=== PATIENT | female | born 1960 | race Caucasian/White ===

== ENCOUNTER 2017-11-10 12:38 | Emergency (ER) | payer BC, SELFPAY | END 2017-11-10 15:04 | disposition home or self-care (01) | PROVIDERS: Emergency Provider Emergency Medicine; Family Provider Internal Medicine Adolescent Medicine; Visit Provider Emergency Medicine | DX: N20.1 Calculus of ureter (principal); K21.9 Gastro-esophageal reflux disease without esophagitis; Z90.49 Acquired absence of other specified parts of digestive tract; Z79.2 Long term (current) use of antibiotics; Z79.899 Other long term (current) drug therapy; Z88.8 Allergy status to other drugs, medicaments and biological substances | CPT/HCPCS: 74176; 80053; 81001; 85025; 87086; 96374; 96375; 99284; J2405 ==

== ENCOUNTER 2018-02-15 12:04 | Emergency (ER) | payer BC, SELFPAY ==
[2018-02-15 12:04] VITALS: BP 120/82; PULSE 82; RESP 18; TEMP 36.7; O2SAT 93; BMI 29.7
--- NOTE | 2018-02-15 12:09 | XR_ITS ---
XR chest 2V HISTORY: ITS.REASON: chest pain ORDERING PHYSICIAN: John Pires MD PATIENT AGE: 57 years COMPARISON: 12/15/2012 FINDINGS: The cardiomediastinal silhouette and pulmonary vascularity are within normal limits. Minimal atelectatic changes are present along the lower aspect of the anterior clear space. Lungs are otherwise clear. There is a loop recorder device present.. No acute bony abnormalities. IMPRESSION: Minimal atelectasis otherwise negative
--- NOTE | 2018-02-15 12:20 | HMH.EDCP ---
ED Disposition Clinical Impression: GERD (gastroesophageal reflux disease), Viral gastroenteritis Disposition: Home, Self-Care Condition on Discharge: Good Instructions: DI for Gastroesophageal Reflux Disease (GERD), DI for Viral Gastroenteritis -- Adult Additional Instructions: Please take the Protonix twice a day for the next 3 days, after which he can resume your previous scheduled dose, once a day. May take Zofran ODT 15-20 minutes prior to meals, start with clear liquids, advance diet as tolerated. Drink plenty of fluids, take Imodium [id number] as needed for diarrhea. If possible please bring a stool sample to outpatient lab for additional testing. Prescriptions: Ondansetron [Zofran 4mg ODT] 4 mg PO QID PRN #20 tab.rapdis PRN Reason: Nausea Referrals: Kane Morgan MD [Primary Care Provider] - Time of Disposition: 14:40 - Critical Care Critical Care Time: No Attestation: On , the high probability of a clinically significant, sudden or life threatening deterioration of the following system(s) required my full and direct attention, intervention and personal management. The time I documented below is in addition to time spent performing reported procedures but includes the following listed in this critical care notation. Medical Decision Making - Medical Records Medical records reviewed: Yes: I reviewed the patient's medical records. - Renzo Inquiry Pt receiving controlled substance: No Vital Signs: 02/15/18 12:04 02/15/18 13:34 02/15/18 14:55 Temperature 98.0 F 98.4 F 98.0 F Temperature Source Oral Oral Oral Pulse Rate 78 Pulse Rate [Right Brachial] 82 64 Respiratory Rate 18 16 18 Blood Pressure 119/63 Blood Pressure [Right Arm] 120/82 119/50 Blood Pressure Mean [Right Arm] 94 73 Blood Pressure Source Automatic Cuff Blood Pressure Source [Right Arm] Automatic Cuff Automatic Cuff Blood Pressure Position Sitting Blood Pressure Position [Right Arm] Sitting Supine 02 Sat by Pulse Oximetry 93 L 100 Oxygen Delivery Method Room Air Room Air Room Air - Lab Data Lab results reviewed: Yes: I reviewed the patient's lab results. Lab Results 02/15/18 12:15: WBC 8.7, RBC 5.03, Hgb 14.2, Hct 42.1, MCV 83.7, MCH 28.1, MCHC 33.6, RDW 13.8, Plt Count 215, MPV 8.5, Neut % (Auto) 76.4, Lymph % (Auto) 14.4, [place] % (Auto) 6.7, Eos % (Auto) 2.4, Baso % (Auto) 0.1, Neut # (Auto) 6.6, Lymph # (Auto) 1.3, [place] # (Auto) 0.6, Eos # (Auto) 0.2, Baso # (Auto) 0.0 02/15/18 12:15: Sodium 138, Potassium 3.2 L, Chloride 103, Carbon Dioxide 26, Anion Gap 12.2, BUN 31 H, Creatinine 0.83, Estimated Creat Clear 104, Estimated GFR 71, Est GFR ( Amer) 86, Glucose 118 H, Calcium 9.0, Total Bilirubin 0.8, AST 27, ALT 40, Alkaline Phosphatase 161 H, Total Creatine Kinase 49, CK-MB (CK-2) 0.5, CK-MB (CK-2) Rel Index 1.0, Troponin I < 0.02, Total Protein 7.7, Albumin 3.3 L, Globulin 4.4 H, Albumin/Globulin Ratio 0.8 L, Amylase 48, Lipase 131 Result diagrams: 02/15/18 12:15 02/15/18 12:15 Orders (Tests/Meds): ED MEDICATIONS Discontinued Medications Generic Name Dose Route Start Last Admin Trade Name Orenq PRN Reason Stop Dose Admin Diphenoxylate HCl/Atropine 5 mg 02/15/18 12:20 02/15/18 12:47 Lomotil 2.5mg Tablet PO 02/15/18 12:21 Not Given ONCE ONE Sodium Chloride 1,000 mls @ 999 mls/hr 02/15/18 12:30 02/15/18 12:47 Sod Chlor 0.9% 1000ml Bag IV 02/15/18 13:30 999 mls/hr .Q1H1M NEERU Administration Ondansetron HCl 4 mg 02/15/18 12:19 02/15/18 12:46 Zofran 4mg/2ml Vial IV 02/15/18 12:20 4 mg ONCE ONE Administration Pantoprazole Sodium 40 mg 02/15/18 12:19 02/15/18 12:46 Protonix 40mg Vial IV 02/15/18 12:20 40 mg ONCE ONE Administration Sodium Chloride 8 ml 02/15/18 12:19 Saline Flush 10ml Syringe IV 02/15/18 12:20 ONCE ONE - Radiology Data #1 Image(s): Chest Image Reviewed: Yes I reviewed the patient's radiology resu
[2018-02-15 12:28] LABS: Basophils % 0.1 % (0.1-2.0); Eosinophils # 0.2 K/mm3 (0.0-0.4); Eosinophils % 2.4 % (0.1-12.0); Hematocrit 42.1 % (37.0-47.0); Hemoglobin 14.2 g/dL (12.2-16.2); Lymphocytes # 1.3 K/mm3 (0.7-4.5); Lymphocytes % 14.4 K/mm3 (10-50); Mean Corpuscular HGB Conc 33.6 g/dL (31.8-35.4); Mean Corpuscular Hemoglobin 28.1 pg (27.0-31.2); Mean Corpuscular Volume 83.7 fl (81-99); Mean Platelet Volume 8.5 fl (7.4-10.4); Monocytes # 0.6 K/mm3 (0.1-1.0); Monocytes % 6.7 % (1.7-9.3); Neutrophils # 6.6 K/mm3 (1.8-7.8); Neutrophils % 76.4 % (37.0-80.0); Platelet Count 215 K/mm3 (142-424); Red Blood Count 5.03 M/mm3 (4.20-5.40); Red Cell Distribution Width 13.8 % (11.5-17.5); White Blood Count 8.7 K/mm3 (4.8-10.8)
[2018-02-15 12:55] LABS: Alanine Aminotransferase 40 U/L (12-78); Albumin Level 3.3 gm/dL (3.4-5.0); Albumin/Globulin Ratio 0.8 (1.1-1.8); Alkaline Phosphatase 161 U/L (46-116); Amylase 48 U/L (25-125); Anion Gap 12.2 mEq/L (5-15); Aspartate Amino Transferase 27 U/L (15-37); Bilirubin,Total 0.8 mg/dL (0.2-1.0); Blood Urea Nitrogen 31 mg/dL (7-18); Carbon Dioxide 26 mmol/L (21.0-32.0); Chloride 103 mmol/L (98-107); Creatine Kinase 49 U/L (26-192); Creatine Kinase MB 0.5 ng/ml (0.0-3.6); Creatinine Clearance Estimated 104 mL/min (0-300); Creatinine,Serum 0.83 mg/dL (0.55-1.02); Estimated Glomerular Filt Rate 71 ml/min (>60); GFR (African American) 86 ML/MIN (>60); Globulin 4.4 gm/dl (1.3-3.2); Glucose 118 mg/dL (74-106); Lipase 131 u/L (73-393); Potassium 3.2 mmoL/L (3.5-5.1); Sodium 138 mmol/L (136-145); Total Protein,Serum 7.7 gm/dL (6.4-8.2); Troponin I < 0.02 ng/ml (0.00-0.06)
[2018-02-15 13:34] VITALS: BP 119/50; PULSE 64; RESP 16; TEMP 36.9; O2SAT 100
[2018-02-15 14:55] VITALS: BP 119/63; PULSE 78; RESP 18; TEMP 36.7; O2SAT 98
== END 2018-02-15 14:56 | disposition home or self-care (01) ==
PROVIDERS: Emergency Provider Emergency Medicine; Family Provider Internal Medicine Adolescent Medicine; PCP Internal Medicine Adolescent Medicine
DX: A08.4 Viral intestinal infection, unspecified (principal); I10 Essential (primary) hypertension; K21.9 Gastro-esophageal reflux disease without esophagitis
CPT/HCPCS: 71046; 80053; 82150; 82550; 82553; 83690; 84484; 85025; 93005; 96365; 96375; 99284; J2405

== ENCOUNTER → 2019-04-16 09:23 | Outpatient (CLI) | payer BC, SELFPAY ==
--- NOTE | 2019-04-16 09:33 | XR_ITS ---
XR chest 2V HISTORY: Patient with bronchitis a few weeks ago. Cough.. ITS.REASON: COUGH, PRE-OP ORDERING PHYSICIAN: Latonia Portillo DPM PATIENT AGE: 59 years Technique: PA and lateral chest. COMPARISON: February 15, 2018. CXR & 12/15/2012 FINDINGS:. No acute findings. No significant change since January 2018. The lungs are well expanded clear with no focal infiltrate. Perhaps some minor chronic changes bilaterally noting subtle coarsening markings. The heart is normal in size with anne and mediastinal structures stable. Satisfactory. Loop recorder again noted. No pleural effusion. No pneumothorax. Chest wall and T-spine stable. Unremarkable. IMPRESSION Stable chest. Lungs clear with no active disease. Nothing definitely acute
[2019-04-16 10:56] LABS: Basophils % 0.4 % (0.1-2.0); Eosinophils # 0.3 K/mm3 (0.0-0.4); Hematocrit 41.5 % (37.0-47.0); Hemoglobin 13.2 g/dL (12.2-16.2); Lymphocytes # 1.3 K/mm3 (0.7-4.5); Lymphocytes % 15.2 % (10-50); Mean Corpuscular HGB Conc 31.8 g/dL (31.8-35.4); Mean Corpuscular Hemoglobin 27.5 pg (27.0-31.2); Mean Corpuscular Volume 86.6 fl (81-99); Mean Platelet Volume 8.1 fl (7.4-10.4); Monocytes # 0.5 K/mm3 (0.1-1.0); Monocytes % 5.6 % (1.7-9.3); Neutrophils # 6.2 K/mm3 (1.8-7.8); Neutrophils % 75.7 % (37.0-80.0); Platelet Count 195 K/mm3 (142-424); Red Blood Count 4.79 M/mm3 (4.20-5.40); Red Cell Distribution Width 14.4 % (11.5-17.5); White Blood Count 8.2 K/mm3 (4.8-10.8)
[2019-04-16 12:46] LABS: Alanine Aminotransferase 33 U/L (12-78); Albumin Level 3.3 gm/dL (3.4-5.0); Albumin/Globulin Ratio 0.9 (1.1-1.8); Alkaline Phosphatase 135 U/L (46-116); Anion Gap 15.2 mEq/L (5-15); Aspartate Amino Transferase 16 U/L (15-37); Bilirubin,Total 0.7 mg/dL (0.2-1.0); Blood Urea Nitrogen 24 mg/dL (7-18); Calcium 8.8 mg/dL (8.5-10.1); Carbon Dioxide 26 mmol/L (21.0-32.0); Chloride 106 mmol/L (98-107); Creatinine,Serum 0.77 mg/dL (0.55-1.02); Estimated Glomerular Filt Rate 77 ml/min (>60); GFR (African American) 93 ML/MIN (>60); Globulin 3.5 gm/dl (1.3-3.2); Glucose 123 mg/dL (74-106); Potassium 3.2 mmoL/L (3.5-5.1); Sodium 144 mmol/L (136-145); Total Protein,Serum 6.8 gm/dL (6.4-8.2)
[2019-04-19 08:50] LABS: Vitamin D 25 Hydroxy 27.6 ng/mL (30.0-100.0)
== END ==
PROVIDERS: PCP Internal Medicine Adolescent Medicine; Visit Provider Podiatrist
DX: Z01.818 Encounter for other preprocedural examination (principal); S82.832A Other fracture of upper and lower end of left fibula, initial encounter for closed fracture; E55.9 Vitamin D deficiency, unspecified
CPT/HCPCS: 36415; 71046; 80053; 82652; 85025; 93005

== ENCOUNTER 2019-04-20 07:51 | Day surgery (SDC) | payer BC, SELFPAY ==
[2019-04-19 10:55] VITALS: BMI 29.7
[2019-04-20] VITALS (16 sets, daily range): BP systolic 122–175; BP diastolic 65–90; PULSE 74–106; RESP 13–25; TEMP 36.6–43; O2SAT 92–98
--- NOTE | 2019-04-20 08:29 | SUR.PREOP ---
0825- pre-op scrub performed by Vianey Carroll RN
--- NOTE | 2019-04-20 08:45 | HMH.ANESCL ---
[facility] Anesthesia Checklist - Patient Identification Patient Identification: Arm Band, Verbal (Name & ) - Structural Data Admitted From: Home Planned Operative Procedure/s: Left ankle ORIF Consent for Planned Operative Procedure(s) Verified: Yes Verified Documents: Surgical Consent, History and Physical - NPO Status Verified Time NPO: 22:30 - Chart Verification Results Verified: CBC, BMP - Additional verifications Patient : No Anesthesia Reactions: No - Airway Assessment C-Spine Mobility Assessed: Yes TMJ Mobility Assessed: Yes Dentition: Good Dentition - Neurological Assessment Level of Consciousness: Awake Hx Seizures: No Numbness or tingling in extremities: No - Anesthesia Plan Anesthesia Risk discussed: Yes Anesthesia Plan: Verified ASA Class: II Anesthesia Type: General (LMA with PNB) [facility] History I have reviewed the patient's past medical history: Yes Medical History: Reports:: Gastroesophageal Reflux Disease(GERD), Kidney Stones Denies:: Cancer, Diabetes Mellitus Type 1, Diabetes Mellitus Type 2, Internal Pacemaker, MRSA, Seizures *Have you ever received a pneumonia vaccine?: No *Have you received a flu vaccine this season?: Yes Other Medical History: Denies: Blood Transfusion Reaction Comment:: obesity Other Surgeries: Yes: Other (wisdom, anal fissure). No: Pacemaker Amputation: No Fractures: No - *Social History Educational Level: Completed College Smoking Status: Never smoker Alcohol Intake: never *Occupational Status:: employed Housing: house Household Members: significant other *Travel in the last 8 weeks: None - Psychiatric History Expresses thoughts of harming self/others: None Suicide Plan Description: No Plan Family Hx:: Cancer
--- NOTE | 2019-04-20 09:22 | HMH.OPNOTE ---
Date of procedure: 04/20/19 Pre-op Diagnosis:: 1. Left displaced ankle (distal fibula) fracture 2. Left delayed fracture non-union Post-op Diagnosis:: Same Procedure performed:: 1. Left resection of fracture non-union 2. Left ORIF ankle (distal fibula) fracture 3. Left application of posterior splint Surgeon:: Latonia Portillo DPM SHEET ROCK HANGER:: Kane Grant Anesthesia: regional (L popliteal block), LMA Estimated blood loss (mL): 15 Clinical Note:: Left Ankle Fracture Indications: X-rays evaluated by myself. 3 views of left ankle taken at [facility] 03/01/19 reviewed and discussed with patient. X-ray reports from Dr. Fish's clinical notes and images reviewed by myself. There has been some additional displacement since the original film with no evidence of callus formation. X-rays reviewed and discussed with the patient. Conservative treatment discussed but not recommended at this time. Patient wants the fastest return to activity . I explained that at this point there is no callus formation and there has been some displacement of the fracture since the initial x-ray. I explained that we could re-cast and keep nonweightbearing for another 6 weeks but the fracture may or may not heal. We discussed use of a bone stimulator. I explained insurance typically will not cover without 90 days of radiographic non healing reports. DOI: 03/01/19. We discussed surgery. I explained that surgery would be the definitive treatment to address the fracture. She is already 6 weeks from the injury and little evidence of healing on x-ray. We discussed risks of delayed nonunions. Patient is relatively healthy. She is not diabetic and does not smoke. She does have a history of low calcium. Recommend we check a vitamin D and get a DEXA bone scan as she has also had 4 fractures in the last 2 years. We discussed the surgery in detail. All risks and benefits were discussed including but not limited to: damage to blood vessels and nerves, bleeding, infection, wound complications, delayed, mal or non-union of bone, post-traumatic arthritis, need for further surgery, need for removal of implant, prolonged swelling of the extremity, prolonged pain, CRPS/RSD, DVT, and anesthetic complications. No guarantees were given. All questions fully answered. The patient verbalized understanding and agreed to proceed with surgery. Consent was obtained. Necessary labs and pre-op testing ordered: CBC, BMP, EKG, CXR, vitamin D. Pt was given a Rx for [place] 7.5/325 #30, Zofran, Motrin, vit D 50,000 units. Discussed DEXA scan and DVT ppx with aspirin. Patient has a fracture boot. She has crutches and knee walker at home. Medical clearance per Dr. Fisher. Operative findings:: Displaced distal left fibula fracture. No callus formation noted. There was a small posterior distal fibula fragment in addition to the main fragment. Operative note:: On this date and time patient was deemed an appropriate surgical candidate. Pre-op regional popliteal nerve block performed by anesthesia. With informed consent signed, the patient was taken to the operating theater. The patient was positioned supine. General anesthesia was induced. Tourniquet was applied to the left mid calf @225mmHg. The left lower extremity was prepped and draped in normal sterile fashion. Left Resection of Fracture Non-union: Attention was directed to the lateral ankle where intra-op fluoroscopy was utilized to steven anatomical landmarks. A linear incision was made over the lateral ankle. Dissection was carried thru skin and subcutaneous tissue with care taken to maintain surgical hemostasis and safely retract neurovascular structures. Dissection was then carried thru deep fascia to bone. The peroneal tendons were visible posteriorly and laterally, and safely retracted during procedure. The fibula was clearly visualized and the fracture was identified. There was no bone callus noted, with a 3mm gap. The wound was flushed with copious amounts of normal sterile saline. A
--- NOTE | 2019-04-20 09:29 | P.OP_ITS ---
Date of procedure: 04/20/19 Pre-op Diagnosis:: 1. Left displaced ankle (distal fibula) fracture 2. Left delayed fracture non-union Post-op Diagnosis:: Same Procedure performed:: 1. Left resection of fracture non-union 2. Left ORIF ankle (distal fibula) fracture 3. Left application of posterior splint Surgeon:: Latonia Portillo DPM PLANTING MACHINE OPERATOR:: Kane Grant Anesthesia: regional (L popliteal block), LMA Estimated blood loss (mL): 15 Clinical Note:: Left Ankle Fracture Indications: X-rays evaluated by myself. 3 views of left ankle taken at [facility] 03/01/19 reviewed and discussed with patient. X-ray reports from Dr. Fish's clinical notes and images reviewed by myself. There has been some additional displacement since the original film with no evidence of callus formation. X-rays reviewed and discussed with the patient. Conservative treatment discussed but not recommended at this time. Patient wants the fastest return to activity . I explained that at this point there is no callus formation and there has been some displacement of the fracture since the initial x-ray. I explained that we could re-cast and keep nonweightbearing for another 6 weeks but the fracture may or may not heal. We discussed use of a bone stimulator. I explained insurance typically will not cover without 90 days of radiographic non healing reports. DOI: 03/01/19. We discussed surgery. I explained that surgery would be the definitive treatment to address the fracture. She is already 6 weeks from the injury and little evidence of healing on x-ray. We discussed risks of delayed nonunions. Patient is relatively healthy. She is not diabetic and does not smoke. She does have a history of low calcium. Recommend we check a vitamin D and get a DEXA bone scan as she has also had 4 fractures in the last 2 years. We discussed the surgery in detail. All risks and benefits were discussed including but not limited to: damage to blood vessels and nerves, bleeding, infection, wound complications, delayed, mal or non-union of bone, post-traumatic arthritis, need for further surgery, need for removal of implant, prolonged swelling of the extremity, prolonged pain, CRPS/RSD, DVT, and anesthetic complications. No guarantees were given. All questions fully answered. The patient verbalized understanding and agreed to proceed with surgery. Consent was obtained. Necessary labs and pre-op testing ordered: CBC, BMP, EKG, CXR, vitamin D. Pt was given a Rx for [place] 7.5/325 #30, Zofran, Motrin, vit D 50,000 units. Discussed DEXA scan and DVT ppx with aspirin. Patient has a fracture boot. She has crutches and knee walker at home. Medical clearance per Dr. Fisher. Operative findings:: Displaced distal left fibula fracture. No callus formation noted. There was a small posterior distal fibula fragment in addition to the main fragment. Operative note:: On this date and time patient was deemed an appropriate surgical candidate. Pre- op regional popliteal nerve block performed by anesthesia. With informed consent signed, the patient was taken to the operating theater. The patient was positioned supine. General anesthesia was induced. Tourniquet was applied to the left mid calf @225mmHg. The left lower extremity was prepped and draped in normal sterile fashion. Left Resection of Fracture Non-union: Attention was directed to the lateral ankle where intra-op fluoroscopy was utilized to steven anatomical landmarks. A linear incision was made over the lateral ankle. Dissection was carried thru skin and subcutaneous tissue with care taken to maintain surgical hemostasis and safely retract neurovascular structures. Dissection was then carried thru deep fascia to bone. The peroneal tendons were visible posteriorly and laterally, and
--- NOTE | 2019-04-20 10:19 | XR_ITS ---
XR ankle LT 2V HISTORY: ITS.REASON: ORIF LEFT FIB ORDERING PHYSICIAN: Latonia Portillo DPM PATIENT AGE: 59 years Comparison: None Fluoroscopy time: 24 seconds FINDINGS: 2 images obtained with the C-arm show a lateral bone plate placed at the distal fibula with good alignment. IMPRESSION: ORIF distal fibular fracture
--- NOTE | 2019-04-20 10:39 | HMH.ANESI ---
[facility] Anesthesia Record Part I Intake, IV Amount: 900 Estimated blood loss (mL): 10 (0) Urine output (mL): 0 Blood Products used (#): none Blood Pressure: 146/77 SaO2: 95 Pulse Rate: 92 Respiratory Rate: 18 Temperature: 97.9 F Patient is:: Awake, Stable Stable to PACU at:: 10:36
--- NOTE | 2019-04-20 10:40 | HMH.ANESII ---
[facility] Anesthesia Record Part II Discharge Time: 11:06 Destination: Surgical Day Care (OP Surgery) PACU nurse assessment reviewed?: Yes Patient Condition:: Good Anesthesia Complications:: None Swallowing reflex intact?: Yes Cyanosis?: No
--- NOTE | 2019-04-20 11:00 | XR_ITS ---
XR ankle LT min 3V HISTORY: ITS.REASON: Post Op ORIF Ankle ORDERING PHYSICIAN: Latonia Portillo DPM PATIENT AGE: 59 years Comparison: 03/01/2019 FINDINGS: Status post ORIF lateral malleolar fracture. Lateral bone plate is present the distal fibula with good bony alignment and no obvious orthopedic complication. Posterior splint is in place. Ankle mortise is preserved IMPRESSION: Good alignment status post ORIF distal fibular fracture
== END 2019-04-20 12:36 | disposition home or self-care (01) ==
PROVIDERS: PCP Internal Medicine Adolescent Medicine; Visit Provider Podiatrist
PROC: (CPT 27726; principal; 2019-04-20 09:15)
DX: S82.892G Other fracture of left lower leg, subsequent encounter for closed fracture with delayed healing (principal); E55.9 Vitamin D deficiency, unspecified; S82.832K Other fracture of upper and lower end of left fibula, subsequent encounter for closed fracture with nonunion; W01.0XXD Fall on same level from slipping, tripping and stumbling without subsequent striking against object, subsequent encounter
CPT/HCPCS: 27726; 73600; 73610; 76000; 96374; C1713; C1762; C1776

== ENCOUNTER → 2019-05-09 13:38 | Outpatient (CLI) | payer BC, SELFPAY ==
--- NOTE | 2019-05-09 13:43 | XR_ITS ---
XR ankle wt bearing LT min 3V HISTORY: Follow-up ORIF ITS.REASON: Post op ORDERING PHYSICIAN: Latonia Portillo DPM PATIENT AGE: 59 years Comparison: 04/20/2019 FINDINGS: Status post ORIF of the fibula with a bone plate along the distal aspect of the fibula stabilizing nondisplaced fracture. There is good alignment of the transverse fracture of the distal fibula. Fracture line is still visible. IMPRESSION: No change status post ORIF distal fibular fracture with good alignment
== END ==
PROVIDERS: PCP Internal Medicine Adolescent Medicine; Visit Provider Podiatrist
DX: S82.892G Other fracture of left lower leg, subsequent encounter for closed fracture with delayed healing (principal); Z98.890 Other specified postprocedural states
CPT/HCPCS: 73610

== ENCOUNTER → 2019-05-31 09:54 | Outpatient (CLI) | payer BC, SELFPAY ==
--- NOTE | 2019-05-31 09:58 | XR_ITS ---
XR ankle wt bearing LT min 3V HISTORY: Follow-up surgery/fracture/pain ITS.REASON: postop views ORDERING PHYSICIAN: Latonia Portillo DPM PATIENT AGE: 59 years Comparison: 05/09/2019 FINDINGS: Bone plate remains in place stabilizing the distal annular fracture with good alignment. Fracture line is still visible. The splint has been removed. There is generalized osteopenia. IMPRESSION: Good alignment distal fibular fracture. Fracture line remains visible
== END ==
PROVIDERS: PCP Internal Medicine Adolescent Medicine; Visit Provider Podiatrist
DX: S82.832A Other fracture of upper and lower end of left fibula, initial encounter for closed fracture (principal)
CPT/HCPCS: 73610

== ENCOUNTER → 2019-06-13 11:12 | Outpatient (CLI) | payer BC, SELFPAY ==
--- NOTE | 2019-06-13 11:15 | XR_ITS ---
XR foot wt bearing LT 3V HISTORY: ITS.REASON: pain/post-op ORDERING PHYSICIAN: Latonia Portillo DPM PATIENT AGE: 59 years COMPARISON: 03/01/2019. FINDINGS: There is now moderate degree of osteopenia compared to the prior study. The degenerative change at the first MTP joint remains stable. Also stable is the plantar calcaneal small spur. There is no acute fracture. The small 5 mm triangular-shaped corticated ossific density adjacent to the medial distal talus remains stable. Impression: Moderate osteopenia. No acute fracture. Other findings described above are stable and chronic.
--- NOTE | 2019-06-13 11:15 | XR_ITS ---
XR ankle wt bearing LT min 3V HISTORY: ITS.REASON: Pain ORDERING PHYSICIAN: Latonia Portillo DPM PATIENT AGE: 59 years Comparison: 70 08/12/2019. FINDINGS: The fibular orthopedic hardware remains stable. There is still a minimal residual lucent fracture line at the distal fibula with corticated margins. This is less prominent compared to the prior study indicating further interval healing. The joint spaces and alignment are normal. The degree of osteopenia is unchanged. Impression: Minimal residual lucent fracture line is still present at the distal fibula however this has improved since the prior study. Persistent stable osteopenia.
== END ==
PROVIDERS: PCP Internal Medicine Adolescent Medicine; Visit Provider Podiatrist
DX: Z98.890 Other specified postprocedural states (principal)
CPT/HCPCS: 73610; 73630

== ENCOUNTER 2021-03-12 16:58 | Observation (INO) | payer BC, SELFPAY ==
[2021-03-12 17:04] VITALS: BP 145/66; PULSE 78; RESP 22; TEMP 36.6; O2SAT 93; BMI 29.6
--- NOTE | 2021-03-12 17:04 | PC.NURSE ---
Pt arrived to the floor at this time.
--- NOTE | 2021-03-12 17:05 | XR_ITS ---
PROCEDURE: XR CHEST 2V CLINICAL HISTORY: Pneumonitis Covid19 pneumonia COMPARISON: CR CXR CHEST(2 VIEWS-NOT PORTABLE) from 12/15/2012 CR CXR2V XR chest 2V from 02/15/2018 FINDINGS: The cardiomediastinal silhouette and pulmonary vascularity are within normal limits. Loop recorder device is present over the left hemithorax. Patchy density is noted in the right upper and left upper lobe consistent with pneumonia. There is also some patchy density in the right lower lobe consistent with pneumonia. The pneumonia has a somewhat ground-glass attenuation. No acute bony abnormalities. IMPRESSION: Bilateral ground-glass opacification consistent with Covid19 pneumonia Dictated by: Shahzad Gillis MD 03/12/2021 17:41 Shahzad Gillis MD in [facility] 03/12/2021 17:41
[2021-03-12 18:00] VITALS: O2SAT 92
[2021-03-12 18:25] LABS: Chloride 108 mmol/L (98-107); Potassium 3.4 mmoL/L (3.5-5.1); Sodium 140 mmol/L (136-145)
[2021-03-12 18:28] LABS: Alanine Aminotransferase 21 U/L (12-78); Albumin Level 3.4 g/dl (3.5-5.0); Albumin/Globulin Ratio 0.9 (1.1-1.8); Alkaline Phosphatase 135 U/L (38-126); Anion Gap 12.4 mEq/L (5-15); Aspartate Amino Transferase 37 U/L (14-36); Bilirubin,Total 0.6 mg/dl (0.2-1.3); Blood Urea Nitrogen 30 mg/dl (7-17); Calcium 8.5 mg/dl (8.4-10.2); Carbon Dioxide 23 mmol/L (22.0-30.0); Creatinine Clearance Estimated 83 mL/min (50-200); Estimated Glomerular Filt Rate 57 ml/min (>60); GFR (African American) 69 ML/MIN (>60); Globulin 3.7 g/dL (1.3-3.2); Glucose 90 mg/dl (74-100); Total Protein,Serum 7.1 g/dl (6.3-8.2)
[2021-03-12 18:30] LABS: Lactic Acid 0.8 mmol/L (0.7-2.1)
[2021-03-12 18:31] LABS: Basophils % 0.4 % (0.1-2.0); Eosinophils % 0.1 % (0.1-12.0); Hemoglobin 13.7 g/dL (12.2-16.2); Lymphocytes # 0.6 K/mm3 (0.7-4.5); Lymphocytes % 8.5 % (10-50); Mean Corpuscular HGB Conc 33.4 g/dL (31.8-35.4); Mean Corpuscular Hemoglobin 28.1 pg (27.0-31.2); Mean Corpuscular Volume 84.2 fl (81-99); Mean Platelet Volume 8.9 fl (7.4-10.4); Monocytes # 0.3 K/mm3 (0.1-1.0); Monocytes % 4.5 % (1.7-9.3); Neutrophils % 86.6 % (37.0-80.0); Platelet Count 159 K/mm3 (142-424); Red Blood Count 4.87 M/mm3 (4.20-5.40)
[2021-03-12 18:33] LABS: MANUAL DIFFERENTIAL MANUAL DIFFERENTIAL (MANUAL DIFF)
[2021-03-12 19:18] LABS: Lymphocytes % 5 % (10-50); Monocytes % 3 % (2-9); Neutrophils % 92 % (42-76); Platelet Estimate Normal; RBC Morphology Normal; Total Cells Counted 100
[2021-03-12 20:00] VITALS: BP 104/63; PULSE 69; RESP 18; TEMP 36.3; O2SAT 91
--- NOTE | 2021-03-12 22:11 | PC.NURSE ---
lab called with positive covid results dr ramirez is aware.
[2021-03-13 00:26] VITALS: BP 99/55; PULSE 61; RESP 18; TEMP 36.4; O2SAT 90
[2021-03-13 04:00] VITALS: BP 106/57; PULSE 59; RESP 18; TEMP 36.4; O2SAT 90
[2021-03-13 05:00] VITALS: BMI 30.5
--- NOTE | 2021-03-13 06:43 | PC.NURSE ---
pt alert and oriented. in airborne/contact/droplet precautions. iv patent and infusing per order. ambulates independently to bathroom. remained on room air since arrival to floor. no pain reported. vss. afebrile. call light in reach. will continue to monitor
[2021-03-13 07:19] VITALS: BP 133/77; PULSE 69; RESP 22; TEMP 36.4; O2SAT 90
--- NOTE | 2021-03-13 07:20 | P.CONPHA_ITS ---
[facility] VTE Monitoring - Patient Demographics Admission date: 03/12/21 Report Date: 03/13/21 Time: 07:20 Allergies/Adverse Reactions: Patient Allergies sumatriptan [From Imitrex] Allergy (Verified 06/20/19 14:13) diphenhydramine [From BENADRYL] Adverse Reaction (Unknown, Verified 06/20/19 14:13) CAN'T SLEEP Height: 1.7 m Weight: 88.195 kg - VTE Risk Labs: VTE Related Lab Results Hgb 13.7 g/dL (12.2-16.2) 03/12/21 18:10 Hct 41.0 % (37.0-47.0) 03/12/21 18:10 Plt Count 159 K/mm3 (142-424) 03/12/21 18:10 BUN 30 mg/dl (7-17) H 03/12/21 18:10 Creatinine 1.00 mg/dl (0.52-1.04) 03/12/21 18:10 Estimated Creat Clear 83 mL/min (50-200) 03/12/21 18:10 Was VTE Risk Assessment Performed: Yes VTE Score: 2 VTE Risk Level: Very Low Risk - Prophylaxis VTE Prophylaxis Ordered?: Yes Types of VTE Prophylaxis: TEDS Knee High, Pharmacological Location of Applied Device: Bilateral Lower Extremeties Pharmacologic Type: Enoxaparin
--- NOTE | 2021-03-13 07:49 | HMH.HP ---
*Admission Date: 03/12/21 *Chief complaint: Cough/fever/congestion *History of present illness: 61-year-old white female who was diagnosed with COVID-19 infection 8 days ago by rapid testing in our office, who became symptomatic 11 days ago, who over the couple of days after her diagnosis became progressively worse, chest tightness and sputum production and was placed on Omnicef and azithromycin as an outpatient. She initially improved but over the past 48 hours has become worse, diminished p.o. intake, coughing, return if fevers, in the office she was found to be tachycardic, relatively hypotensive compared to baseline, crackles in her lung field, O2 saturation 92% on room air, admitted to hospital for further diagnostic testing, supportive care, IV fluids and IV steroids. [facility] History I have reviewed the patient's past medical history: Yes Medical History: Reports:: Gastroesophageal Reflux Disease(GERD), Kidney Stones Denies:: Cancer, Diabetes Mellitus Type 1, Diabetes Mellitus Type 2, Internal Pacemaker, MRSA, Seizures *Have you ever received a pneumonia vaccine?: Yes *Have you received a flu vaccine this season?: Yes Other Medical History: Denies: Blood Transfusion Reaction Other Surgeries: Yes: Cardiac Catheterization, Cholecystectomy, Other (wisdom, anal fissure). No: Pacemaker Amputation: No Fractures: Yes (R Ankle) - *Social History Last grade of school completed: Advanced degree Smoking Status: Never smoker Alcohol Intake: never *Occupational Status:: other Housing: house Household Members: spouse *Travel in the last 8 weeks: None Family Hx:: Cancer Review of Systems - Review of Systems Review of systems:: pertinent systems reviewed and negative unless documented below Meds Home Medications Medication Instructions Recorded Confirmed Type Pantoprazole Sodium [Protonix 40mg 40 mg PO DAILY 02/15/18 03/13/21 History tablet] Albuterol Sulfate [Albuterol 2 puffs IH Q6H PRN 03/13/21 03/13/21 History Sulfate Hfa] Allergies Allergy/AdvReac Type Severity Reaction Status Date / Time sumatriptan [From Imitrex] Allergy Verified 06/20/19 14:13 diphenhydramine AdvReac Unknown CAN'T Verified 06/20/19 14:13 [From BENADRYL] SLEEP Exam Vital signs and Labs for Last 24 Hours: Temp Pulse Resp BP Pulse Ox 97.6 F 69 22 133/77 90 L 03/13/21 07:19 03/13/21 07:19 03/13/21 07:19 03/13/21 07:19 03/13/21 07:19 Laboratory Results - last 24 hr 03/12/21 18:10: WBC 7.0, RBC 4.87, Hgb 13.7, Hct 41.0, MCV 84.2, MCH 28.1, MCHC 33.4, RDW 14.0, Plt Count 159, MPV 8.9, Neut % (Auto) 86.6 H, Lymph % (Auto) 8.5 L, [place] % (Auto) 4.5, Eos % (Auto) 0.1, Baso % (Auto) 0.4, Neut # (Auto) 6.0, Lymph # (Auto) 0.6 L, [place] # (Auto) 0.3, Eos # (Auto) 0.0, Baso # (Auto) 0.0, Total Counted 100, Neutrophils % (Manual) 92 H, Lymphocytes % (Manual) 5 L, Monocytes % (Manual) 3, Platelet Estimate Normal, RBC Morphology Normal 03/12/21 18:10: Sodium 140, Potassium 3.4 L, Chloride 108 H, Carbon Dioxide 23, Anion Gap 12.4, BUN 30 H, Creatinine 1.00, Estimated Creat Clear 83, Estimated GFR 57 L, Est GFR ( Amer) 69, Glucose 90, Calcium 8.5, Total Bilirubin 0.6, AST 37 H, ALT 21, Alkaline Phosphatase 135 H, Total Protein 7.1, Albumin 3.4 L, Globulin 3.7 H, Albumin/Globulin Ratio 0.9 L 03/12/21 18:10: Lactate 0.8 I & O for Last 24 hours: Intake & Output 03/10/21 03/11/21 03/12/21 03/13/21 11:59 11:59 11:59 11:59 Intake Total 2920 / 2920 Balance 2920 / 2920 Weight 194 lb 7 oz Microbiology Reports for the Last 24 Hours: Microbiology 03/12/21 18:10 Nasopharyngeal Coronavirus COVID-19 PCR - Final - *Routine HEENT Exam Head: Present: normocephalic Eye: Present: EOMI, PERRL ENT: Present: mucous membranes moist - *Routine Neck Exam Present: supple. Absent: lymphadenopathy - *Routine Respiratory Exam Present: rales, rhonchi, crackles Comments: Crackles mostly on right middle lung field. S
--- NOTE | 2021-03-13 08:16 | HMH.DCSUM ---
General - General Admission date:: 03/12/21 Discharge date: 03/13/21 HPI HPI: 61-year-old white female who was diagnosed with COVID-19 infection 8 days ago by rapid testing in our office, who became symptomatic 11 days ago, who over the couple of days after her diagnosis became progressively worse, chest tightness and sputum production and was placed on Omnicef and azithromycin as an outpatient. She initially improved but over the past 48 hours has become worse, diminished p.o. intake, coughing, return if fevers, in the office she was found to be tachycardic, relatively hypotensive compared to baseline, crackles in her lung field, O2 saturation 92% on room air, admitted to hospital for further diagnostic testing, supportive care, IV fluids and IV steroids. Hospital Course Hospital Course: Patient was admitted, blood counts were done, no leukocytosis, chemistry panel essentially unrevealing. Chest x-ray showed groundglass opacities consistent with a viral pneumonia but no evidence of bacterial lobar pneumonia appearances on chest x-ray. Patient continued to have a dry cough, nonproductive. She did not require oxygen overnight. This morning after IV fluid she felt much better, eating well. Less cough. Wished to go home. Plan to be discharged home on Levaquin, dexamethasone and her continued cough medicine. Instructions about hydration were given. Follow-up in our office as scheduled. Objective Vital signs: Temp Pulse Resp BP Pulse Ox 97.6 F 69 22 133/77 90 L 03/13/21 07:19 03/13/21 07:19 03/13/21 07:19 03/13/21 07:19 03/13/21 07:19 no acute distress - *Routine HEENT Exam Head: Present: normocephalic Eye: Present: EOMI, PERRL ENT: Present: mucous membranes moist - *Routine Neck Exam Present: supple - *Routine Respiratory Exam Present: rales (In right base of lung, improved aeration over yesterday) - *Routine Cardiovascular Exam Present: RRR - *Routine Abdominal Exam Present: soft, normoactive bowel sounds. Absent: tenderness - *Routine Extremities Exam Absent: cyanosis, clubbing, edema - *Routine Skin Exam Present: warm. Absent: rash - Detailed Eye Exam Eyelids: Bilateral normal inspection Results Labs on day of discharge: Labs from last 24 hours 03/12/21 03/12/21 03/12/21 18:10 18:10 18:10 WBC 7.0 RBC 4.87 Hgb 13.7 Hct 41.0 MCV 84.2 MCH 28.1 MCHC 33.4 RDW 14.0 Plt Count 159 MPV 8.9 Neut % (Auto) 86.6 H Lymph % (Auto) 8.5 L [place] % (Auto) 4.5 Eos % (Auto) 0.1 Baso % (Auto) 0.4 Neut # (Auto) 6.0 Lymph # (Auto) 0.6 L [place] # (Auto) 0.3 Eos # (Auto) 0.0 Baso # (Auto) 0.0 Total Counted 100 Neutrophils % (Manual) 92 H Lymphocytes % (Manual) 5 L Monocytes % (Manual) 3 Platelet Estimate Normal RBC Morphology Normal Sodium 140 Potassium 3.4 L Chloride 108 H Carbon Dioxide 23 Anion Gap 12.4 BUN 30 H Creatinine 1.00 Estimated Creat Clear 83 Estimated GFR 57 L Est GFR ( Amer) 69 Glucose 90 Lactate 0.8 Calcium 8.5 Total Bilirubin 0.6 AST 37 H ALT 21 Alkaline Phosphatase 135 H Total Protein 7.1 Albumin 3.4 L Globulin 3.7 H Albumin/Globulin Ratio 0.9 L DS: Diagnosis - Discharge Diagnosis (1) Pneumonia due to COVID-19 virus Status: Acute (2) Dehydration Status: Acute (3) Community acquired pneumonia Status: Acute Discharge Plan - Patient Discharge Instructions ACTIVITY: Continue current activity DIET: continue same diet Patient Instructions: DI for COVID-19 (Suspected or Confirmed ) - Follow up Plan Follow up with: Kane Morgan MD [Primary Care Provider] - 03/21/21 Disposition: Home, Self-Senior Care Medications: Home Medications Medication Instructions Recorded Confirmed Type Pantoprazole Sodium [Protonix 40mg 40 mg PO DAILY 02/15/18 03/13/21 History tablet
== END 2021-03-13 13:45 | disposition home or self-care (01) ==
PROVIDERS: Admitting Provider Internal Medicine Adolescent Medicine; PCP Internal Medicine Adolescent Medicine; Visit Provider Internal Medicine Adolescent Medicine
DX: U07.1 COVID-19 (principal); J12.82 Pneumonia due to coronavirus disease 2019; E86.0 Dehydration; Z88.8 Allergy status to other drugs, medicaments and biological substances; Z79.899 Other long term (current) drug therapy
CPT/HCPCS: 71046; 80053; 83605; 85007; 85025; 87040; G0378; J1956; U0003

== ENCOUNTER 2021-03-14 20:57 | Emergency (ER) | payer BC, SELFPAY ==
[2021-03-14 21:14] VITALS: BP 127/79; PULSE 65; RESP 21; TEMP 36.2; O2SAT 94; BMI 31.3
[2021-03-14 21:37] VITALS: BP 117/75; PULSE 73; RESP 17; TEMP 36.8; O2SAT 98
== END 2021-03-14 21:37 | disposition left against medical advice (07) ==
LOC: ER 21:13
PROVIDERS: Emergency Provider Emergency Medicine; PCP Internal Medicine Adolescent Medicine
DX: U07.1 COVID-19 (principal)
CPT/HCPCS: 99211

== ENCOUNTER 2021-06-14 10:28 | Emergency (ER) | payer BC, SELFPAY ==
[2021-06-14 10:59] VITALS: BP 161/89; PULSE 73; RESP 16; TEMP 36.9; O2SAT 98; BMI 29.6
--- NOTE | 2021-06-14 11:20 | HMH.EDUTC ---
[facility] [place] Disposition Clinical Impression: Bronchitis Sinusitis Qualifiers: Sinusitis location: unspecified location Chronicity: unspecified Qualified Code(s): J32.9 - Chronic sinusitis, unspecified Disposition: Home, Self-Care Condition on Discharge: Good Instructions: Sinusitis, DI for Sinusitis, Amoxicillin and Clavulanic Acid Additional Instructions: *Monitor Temp, Over the counter Motrin or Tylenol as directed/as needed Tylenol every 4 hours and Motrin every 6 hours (as long as your family doctor has told you that you can take it) for fever or pain. and straight to ER if unable to lower temp less than 101.0 after medication given *Warm fluids like tea with honey may help to soothe the throat and open nasal passages *Sleep elevated *Humidifier/Vaporizer *Flonase 2 sprays in each nostril daily but be aware that it may take 2-3 days before you notice improvement Follow up IMMEDIATELY for new or worsening symptoms or no Noticeable improvement over the next 48-72 hours. 911 for difficulty breathing or swallowing Prescriptions: Amoxicillin/Potassium Clav [Augmentin 875-125 Tablet] 1 tab PO Q12H 7 Days #14 tab Transmission Status: Pending to [facility] Referrals: Kane Morgan MD [Primary Care Provider] - As needed Time of Disposition: 11:24 Medical Decision Making - Renzo Inquiry Pt receiving controlled substance: No Renzo was queried for this patient: No Vital Signs: 06/14/21 10:59 Temperature 98.4 F Temperature Source Oral Pulse Rate [Right] 73 Respiratory Rate 16 Blood Pressure [Right Arm] 161/89 H Blood Pressure Mean [Right Arm] 113 Blood Pressure Source [Right Arm] Automatic Cuff Blood Pressure Position [Right Arm] Sitting 02 Sat by Pulse Oximetry 98 Oxygen Delivery Method Room Air [facility] [place] HPI - General Stated complaint: congestion Time Seen by Provider: 06/14/21 11:20 Mode of Arrival: Ambulatory Source of Information: Patient Limitations: No Limitations Description of Symptoms (Recalled from Triage Doc. by RN): pt c/o cough and congestions. Advises she had the covid vaccine on Thursday HEENT Symptoms (Recalled from RN notes): No Resp Symptoms (Recalled from RN notes): Yes (cough and congestion) Skin Symptoms (Recalled from RN notes): No MS Symptoms (Recalled from RN notes): No Functional Status (Recalled from RN notes): na - History of Present Illness Provider Complaint: Patient states that she started having sinus pressure and congestion on Thursday States that then on Thursday she got the COVID vaccine States that since then she has continued to have sinus pressure and feels like it is trying to move into her chest States that she gets bronchitis often and usually has to come in and get Augmentin - Related Data Home Medications Medication Instructions Recorded Confirmed Pantoprazole Sodium [Protonix 40mg 40 mg PO DAILY 02/15/18 03/13/21 tablet] Albuterol Sulfate [Albuterol 2 puffs IH Q6H PRN 03/13/21 03/13/21 Sulfate Hfa] Previous Rx's Medication Instructions Recorded dexAMETHasone [Decadron 4mg tablet] 4 mg PO BID #14 tab 03/13/21 levoFLOXacin [Levaquin 500mg 500 mg PO DAILY #7 tab 03/13/21 tab] Amoxicillin/Potassium Clav 1 tab PO Q12H 7 Days #14 tab 06/14/21 [Augmentin 875-125 Tablet] Allergies Allergy/AdvReac Type Severity Reaction Status Date / Time sumatriptan [From Imitrex] Allergy Verified 06/20/19 14:13 diphenhydramine AdvReac Unknown CAN'T Verified 06/20/19 14:13 [From BENADRYL] SLEEP - Worker's Comp Is this a Worker's Comp case?: No [facility] History - Hepatitis A Screen Drug use history?: No High risk sexual behaviors?: No History of sexually transmitted infection?: No Currently employed?: No Childcare worker?: No Do you have indoor plumbing?: Yes Do you have electricity?: Yes Attestation statement:: This patient has been screened for Hepatitis A risk factors. I have reviewed the patient's past medical history: Y
[2021-06-14 11:43] VITALS: BP 161/89; PULSE 79; RESP 18; TEMP 36.7; O2SAT 99
== END 2021-06-14 11:43 | disposition home or self-care (01) ==
PROVIDERS: Emergency Provider Nurse Practitioner; PCP Internal Medicine Adolescent Medicine
DX: J20.9 Acute bronchitis, unspecified (principal); J32.9 Chronic sinusitis, unspecified; K21.9 Gastro-esophageal reflux disease without esophagitis; Z87.442 Personal history of urinary calculi
CPT/HCPCS: 99202; G0463

== ENCOUNTER 2022-05-29 16:15 | Emergency (ER) | payer BC, SELFPAY ==
[2022-05-29 16:31] VITALS: BP 150/75; PULSE 92; RESP 17; TEMP 37.9; O2SAT 96; BMI 29.7
[2022-05-29 16:43] LABS: Apearance,Urine Slightly Cloudy (Clear); Color,Urine Dark Yellow (Yellow); Glucose,Urine (UA) Negative (Negative); Ketones,Urine Negative (Negative); Protein,Urine 2+ (Negative); Specific Gravity, Urine >= 1.030 (1.005-1.030)
[2022-05-29 16:44] LABS: Bilirubin,Urine 1+ (Negative); Blood, Urine 3+ (Negative); UTC Leukocyte Esterase,Urine Trace (Negative); UTC Nitrate,Urine Positive (Negative); Urobilinogen,Urine 0.2 EU/dl (0.2)
--- NOTE | 2022-05-29 16:51 | HMH.EDUTC ---
[facility] [place] Disposition Clinical Impression: UTI (urinary tract infection) Qualifiers: Urinary tract infection type: site unspecified Hematuria presence: with hematuria Qualified Code(s): N39.0 - Urinary tract infection, site not specified Disposition: Home, Self-Care Condition on Discharge: Good Instructions: Urinary Tract Infection, Urine Culture, DI for Urinary Tract Infection (UTI) Additional Instructions: Drink plenty of fluids. Take tylenol or ibuprofen for pain or fever. Take the medications as directed. Follow up with your regular doctor. GO TO THE ER FOR ANY WORSENING SYMPTOMS The pyridium will make your urine turn orange, this is an expected side effect. It will stain your clothes if it comes into contact with them. We will culture the urine. That will tell what bacteria is causing your infection and which antibiotics will treat it best. Sometimes the first antibiotic we prescribe turns out to not work against different bacteria. So, make sure you follow up within 3 days if you are not getting better. Prescriptions: Ondansetron [Zofran 4mg ODT] 4 mg PO Q8HP PRN #20 tab PRN Reason: Nausea Transmission Status: Received by [facility] Ciprofloxacin HCl [Cipro 500mg Tab] 500 mg PO BID 7 Days #14 tab Transmission Status: Received by [facility] Phenazopyridine HCl [Pyridium 200mg Tablet] 200 pow PO TID #6 tab Transmission Status: Received by [facility] Referrals: Kane Morgan MD [Primary Care Provider] - Time of Disposition: 17:34 Medical Decision Making - Medical Records Medical records reviewed: No: I reviewed the patient's medical records. - Renzo Inquiry Pt receiving controlled substance: No Vital Signs: 05/29/22 16:31 05/29/22 18:06 Temperature 100.2 F H 100.2 F H Temperature Source Oral Pulse Rate 92 H Pulse Rate [Right] 92 H Respiratory Rate 17 17 Blood Pressure 150/75 H Blood Pressure [Right Arm] 150/75 H Blood Pressure Mean [Right Arm] 100 Blood Pressure Source [Right Arm] Automatic Cuff Blood Pressure Position [Right Arm] Sitting 02 Sat by Pulse Oximetry 96 Oxygen Delivery Method Room Air - Lab Data Lab results reviewed: Yes: I reviewed the patient's lab results. Lab Results 05/29/22 16:40: Urine Color Dark yellow, Urine Appearance Slightly cloudy, Urine pH 6.0, Ur Specific [place] >= 1.030, Urine Protein 2+, Urine Glucose (UA) Negative, Urine Ketones Negative, Urine Blood 3+, Urine Nitrate Positive A, Urine Bilirubin 1+ A, Urine Urobilinogen 0.2, Ur Leukocyte Esterase Trace Orders (Tests/Meds): ED MEDICATIONS Discontinued Medications Generic Name Dose Route Start Last Admin Trade Name Azra PRN Reason Stop Dose Admin Ceftriaxone Sodium 1 gm 05/29/22 16:56 05/29/22 17:17 Ceftriaxone 1gm Vial IM 05/29/22 16:57 1 gm ONCE ONE Administration Lidocaine HCl 0 ml 05/29/22 16:56 05/29/22 17:16 Lidocaine 1% 5ml Pf Vial IM 05/29/22 16:57 2 ml ONCE ONE Administration ORDERS Category Date Time Status Urine Culture Stat Micro 05/29/22 16:40 Received [facility] [place] HPI - General Stated complaint: fever and back pain Time Seen by Provider: 05/29/22 16:51 Description of Symptoms (Recalled from Triage Doc. by RN): patient comes in with fever that began this am. patient states that she is having left kidney pain. the pain is located on the left side of lower back. patient states she a history of kidney stones HEENT Symptoms (Recalled from RN notes): Yes (fever) Resp Symptoms (Recalled from RN notes): No Skin Symptoms (Recalled from RN notes): No MS Symptoms (Recalled from RN notes): Yes (lower back pain) Functional Status (Recalled from RN notes): na - History of Present Illness Provider Complaint: She c/o dysuria, left sided low back pain, and low grade fever since yesterday. - Related Data Home Medications Medication Instructions Recorded Confirmed Pantoprazole Sodium [Pr
[2022-05-29 18:06] VITALS: BP 150/75; PULSE 92; RESP 17; TEMP 37.9
== END 2022-05-29 18:07 | disposition home or self-care (01) ==
PROVIDERS: Emergency Provider Nurse Practitioner Family; PCP Internal Medicine Adolescent Medicine
DX: N39.0 Urinary tract infection, site not specified (principal)
CPT/HCPCS: 81003; 87086; 87088; 87186; 96372; 99212; G0463; J0696

== ENCOUNTER → 2023-01-29 15:36 | Outpatient (CLI) | payer BC, SELFPAY ==
--- NOTE | 2023-01-29 15:40 | XR_ITS ---
FINAL REPORT CLINICAL HISTORY: SOA COMPARISON: 03/12/2021 FINDINGS: Two views of the chest were obtained. The heart size and pulmonary vascularity are within normal limits. The mediastinum is normal. No acute pulmonary abnormality is identified. There is no pneumothorax. The bony thorax is intact. IMPRESSION: No active cardiopulmonary disease. Reviewed, Interpreted and Dictated by Ar Foote III, MD Transcribed by Treva Hewitt Authenticated and [facility]
== END ==
LOC: RAD 15:37
PROVIDERS: PCP Family Medicine; Visit Provider Nurse Practitioner Family
DX: R06.02 Shortness of breath (principal)
CPT/HCPCS: 71046

== ENCOUNTER 2024-10-17 20:07 | Emergency (ER) | payer BC, SELFPAY ==
[2024-10-17 20:31] VITALS: BP 180/80; PULSE 59; RESP 16; TEMP 36.8; O2SAT 98; BMI 31.3
--- NOTE | 2024-10-17 20:47 | ECG_ITS ---
APPROVED REPORT Exam: Resting ECG HR:59 bpm ECG Measurements Heart Rate 59 AXES IA 143 P -29 QRSd 90 QRS 26 QT 416 T 58 QTc 414 Conclusion SINUS BRADYCARDIA Nonspecific ST/T wave changes without acute STEMI. No prior EKG available for comparison. Electronically signed by : TRAV BEAL, 10/17/2024 23:27:53
[2024-10-17 20:57] LABS: Basophils % 0.7 % (0.1-2.0); Eosinophils # 0.2 K/mm3 (0.0-0.4); Eosinophils % 3.6 % (0.1-12.0); Hematocrit 41.2 % (37.0-47.0); Hemoglobin 14.1 g/dL (12.2-16.2); Lymphocytes # 1.7 K/mm3 (0.7-4.5); Lymphocytes % 26.6 % (10-50); Mean Corpuscular HGB Conc 34.3 g/dL (31.8-35.4); Mean Corpuscular Hemoglobin 29.2 pg (27.0-31.2); Mean Corpuscular Volume 85.1 fl (81-99); Mean Platelet Volume 8.8 fl (7.4-10.4); Monocytes # 0.4 K/mm3 (0.1-1.0); Monocytes % 6.6 % (1.7-9.3); Neutrophils % 62.6 % (37.0-80.0); Platelet Count 154 K/mm3 (142-424); Red Blood Count 4.84 M/mm3 (4.20-5.40); Red Cell Distribution Width 14.4 % (11.5-17.5); White Blood Count 6.4 K/mm3 (4.8-10.8)
[2024-10-17 21:14] LABS: Alanine Aminotransferase 44 U/L (12-78); Albumin Level 4.4 g/dl (3.5-5.0); Albumin/Globulin Ratio 1.4 (1.1-1.8); Alkaline Phosphatase 142 U/L (38-126); Anion Gap 12.5 mEq/L (5-15); Aspartate Amino Transferase 52 U/L (14-36); Blood Urea Nitrogen 25 mg/dl (7-17); Calcium 9.4 mg/dl (8.4-10.2); Carbon Dioxide 27 mmol/L (22.0-30.0); Chloride 108 mmol/L (98-107); Creatinine Clearance Estimated 84 mL/min (50-200); Estimated Glomerular Filt Rate 73 ml/min (>60); GFR (African American) 88 ML/MIN (>60); Globulin 3.2 g/dL (1.3-3.2); Glucose 104 mg/dl (74-100); Potassium 3.5 mmoL/L (3.5-5.1); Sodium 144 mmol/L (136-145); Total Protein,Serum 7.6 g/dl (6.3-8.2)
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
[2024-10-17 21:44] LABS: Troponin I < 0.01 ng/ml (0.00-0.034)
[2024-10-17 21:45] LABS: HIV (1&2) Antibody Rapid NONREACTIVE (NONREACTIVE)
[2024-10-17 22:10] VITALS: BP 150/91; PULSE 52; RESP 16; TEMP 36.7; O2SAT 98
[2024-10-19 08:22] LABS: HCV Ab Non Reactive (Non Reactive)
== END 2024-10-17 22:18 | disposition home or self-care (01) ==
PROVIDERS: Emergency Provider Emergency Medicine; PCP Internal Medicine Adolescent Medicine
DX: R51.9 Headache, unspecified (principal); H53.8 Other visual disturbances; R53.83 Other fatigue
CPT/HCPCS: 80053; 84484; 85025; 86803; 87389; 93005; 99283

== ENCOUNTER 2025-06-26 12:56 | Outpatient (CLI) | payer BC, SELFPAY ==
--- OUTSIDE RECORDS SUMMARY | 2025-05-05 11:00 | XMS_ITS | Encounter Summary ---
Author Organization [facility] Address [address] [place] [address] Care Team Providers Care Retail Marketing Executive Name Role Phone Kane Morgan MD Primary Care Provider [phone] Reason for Visit * Reason Comments Follow-up Encounter Details Date Type Department Care Team (Late st Contact Info) Description 05/05/2025 11:00 AM EDT Office Visit [facility] [address] [place] [address] Tanya De Paz, CRITICAL CARE TECHNICIAN [address] [place] [address] History of ischemic right [employer] stroke (Primary Dx); Palpitations; Hyperlipidemia LDL goal <70; Hypertension, unspecified type Social History Tobacco Use Types Packs/Day Years Used Date Smoking Tobacco: Never Passive Smoke Exposure: Never Smokeless Tobacco: Never Tobacco Cessation:Counseling Given: No Alcohol Use Standard Drinks/Week Comments Never 0 (1 standard drink = 0.6 oz pur e alcohol) AUDIT-C Answer Date Recorded Q1: How often do you have a drink containing alcohol? Never 10/19/2024 Q2: How many drinks containi ng alcohol do you have on a typical day when you are drinking? Patient does not drink Q3: How often do you have si x or more drinks on one occasion? Never 10/19/2024 Abuse Screen Answer Date Recorded Feels Unsafe at Home or Work/School no 10/19/2024 Feels Threatened by Someone no 09/24 Does Anyone Try to Keep You From Having Contact with Others or Doing Things Outside Your Home? no 10/19/2024 Physical Signs of Abuse Present no 10/19/2024 Housing Stability Answer Date Recorded Current Living Arrangements home 09/24 Potentially Unsafe Housing Conditions Not on aidan e 10/19/2024 Disabilities Answer Date Recorded Difficulty Concentrating, Remembering or Making Decisions no 10/19/2024 Difficulty Managing Errands Independently no 10/19/2024 PHQ-2 Answer Date Recorded Patient Health Questionnaire-2 Score 0 05/05/2025 Comments No Sex and Gender Information Value Date Recorded Sex Assigned at Not on file Legal Sex Female 10:47 AM EDT Gender Identity Not on file Sexual Orientation Not on file documented as of this encounter Last Filed Vital Signs Vital Sign Reading Time Taken Comments Blood Pressure 126/77 05/05/2025 10:47 AM EDT Pulse 70 05/05/2025 10:47 AM EDT Temperature 36.5 C (97.7 F) 05/05/2025 10:47 AM EDT Respiratory Rate - - Oxygen Saturation 98% 05/05/2025 10:47 AM EDT Inhaled Oxygen Concentration - - Weight 91.2 kg (201 lb) 05/05/2025 10:47 AM EDT Height 172.7 cm (5' 7.99 ) 05/05/2025 10:47 AM E DT Body Mass Index 30.57 05/05/2025 10:47 AM EDT documented in this encounter Functional Status documented as of this encounter Progress Notes * Tanya De Paz, AHMET - 05/05/2025 11:00 AM EDT Follow Up Office Visit Encounter Date: 05/05/2025 Patient Name: Carrie Chapman : 1960 PCP: Kane Morgan MD Chief Complaint: Chief Complaint Patient presents with Follow-up for management of stroke History of Present Illness: Carrie Chapman is a 64 y.o. female with known medical diagnoses of MVR, CHF, HLD, GERD, and stroke who presents to clinic today for follow-up. She presented to [facility] on 10/19/2024 with complaints of vision changes. She initially presented to the ED at [facility] the prior where she declined CT scans. She reported her BP was 190/110 but had a negative workup otherwise. On 10/16/2025, her vision worsened and she was unable to see out of the upper half of both of her eyes and had decreased vision in the peripheral field of her left eye. She reported significant headache with bending over. She was seen by ophthalmology where she had a negative eye exam. She presented to the ED for further evaluation. CT head with a hypodensity in the right [employer] territory. CTA H/N with a right P2 occlusion. CTP deferred as patient's symptoms had been ongoing for 3 days. MRI brain without right [employer] stroke. TTE with a EF of 56 to 60%, mildly increased LAE, negative bubble study. She was thought to have a mass on the interatrial septum in the right atrium measuring 0.6 x 0.2 c m. MARY was recommended but unable been completed until 12/25/2023. Patient preferred to discharge home. She was started on DAPT with aspirin and Plavix for 21 days to be followed by aspirin 81 mg monotherapy. LDL is 127. Atorvastatin 80 mg daily ordered. She underwent a MARY as an outpatient. 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 Cardiology believe TTE findings were caused by artifact from prominent right atrial eustachian valve. 30-day front desk monitor recommended by cardiology to assess for atrial fibrillation. Clinic visit 11/21/2024: Mrs. Chapman presents to clinic today with her [id number]. She continues tohave visual deficits. She reports that she initially had some photo sensitivity that has improved over the last month. She is ambulating without difficulty. 30 day M cot is currently in place. Discussed with her that if the M cot is negative that she will need a loop recorder placed. She verbalizedunderstanding. She reports that she had a loop recorder placed in 2018 but the battery is currentlydead. She has struggled with poststroke depression and anxiety. She was recently started on BuSpar 10 mg. She reports that she has been on it for 2 weeks. Discussed with her that it will take 4 to 6 weeks to notice improvement. She will continue to follow with her PCP for further management. She does currently have a sinus infection and is taking Augmentin. She is scheduled to see Dr. Kendrick with neuro-ophthalmology in January. She has an appointment with Dr. Horan in [place] with neuro-opto metry for possible vision therapy. Discussed with her and her ulikfj-[id number] that we recommend that she does not drive until approved by ophthalmology. She verbalized understanding. She underwent a home sleep study that was negative for INA. Patient reports that she continues to snore and have daytime lethargy. Discussed with her that I could refer her to sleep medicine for further evaluation and she declines at this time. Clinic visit 02/02/2025: Patient presents to clinic today to discuss getting clearance for cataract surgery. She is scheduled later this month to get both eyes fixed. She reports that she does not have to stop her aspirin prior to surgery. Due to no changes being made to her stroke preventative medications I have no issue with her pursuing this. She denies any new or worsening stroke like symptoms. We discuss her follow up with Dr. Davis with cardiology and she reports he did not mention getting a loop and she did not ask. I reviewed that at her last stroke clinic appointment it was recommended that she get a loop if her MCOT was negative. She reports she currently has a loop in place that was inserted in 2014 due to a series of syncopal episodes and palpitations but apparently nothing abnormal was found at that time. Now given her having a cryptogenic stroke I do believe ongoing monitoring is warranted. Clinic visit 05/05/2025: She reports no new symptoms or issues and has been managing well without any complications. She does not experience any numbness/weakness in her face, arms, or legs, and has not experienced any recent falls. She continues to experience some visual deficits post-stroke but notes significant improvement following cataract surgery. Her peripheral vision loss is described as minor, and she does not wear glasses, although she uses readers. She reports no difficulties with driving. Currently, she is on a regimen of aspirin 81 mg and Lipitor 80 mg for secondary stroke prevention. Her family physician has also prescribed Farxiga, not due to concerns about her blood sugar levels, but as a preventive measure against stroke and cardiac events. She has lost 10 pounds since her stroke but has not observed any further weight loss. . She had a loop recorder placed in 2015, which has since become inactive. She has not had it replaced due to various personal circumstances, including knee replacement surgery in 11/2024 and cataract surgery in 01/2025. She expresses a preference to have the loop recorder replaced within the currentyear, as she has already met her deductible. She recalls experiencing sporadic dizzy spells around 2005 or 2006, which she attributed to stress from personal circumstances including divorce, job loss, and family health issues. A bubble echo andstress test were performed, revealing potential issues on the posterior aspect of her heart. However, her mid level clinician suggested these could be false positives due to her body habitus. A heart catheterization was considered but not pursued at that time. In 2008, irregular beats were detected, leading to another heart catheterization around 2015, which did not reveal any abnormalities. A loop recorder was then implanted, but it did not detect any events. Due to suspicion that her stroke Subjective I have reviewed and the following portions of the patient's history were updated as appropriate: past family history, past medical history, past social history, past surgical history and problem list. Medications: Current Outpatient Medications: aspirin 81 MG chewable tablet, Chew 1 tablet Daily., Disp: , Rfl: atorvastatin (LIPITOR) 80 MG tablet, Take 1 tablet by mouth Every Night., Disp: 90 tablet, Rfl: 0 carvedilol (COREG) 3.125 MG tablet, Take 1 tablet by mouth 2 (Two) Times a Day., Disp: 180 tablet, Rfl: 3 Farxiga 10 MG tablet, , Disp: , Rfl: pantoprazole (PROTONIX) 40 MG EC tablet, Take 1 tablet by mouth As Needed., Disp: , Rfl: Allergies: Allergies Allergen Reactions Paxlovid [Nirmatrelvir-Ritonavir] Myalgia Benadryl [Diphenhydramine] Other (See Comments) TROUBLE SLEEPING\ Imitrex [Sumatriptan] Other (See Comments) DIFF SWALLOWING Objective Physical Exam: Vital Signs: Vitals: 05/05/25 1047 BP: 126/77 Pulse: 70 Temp: 97.7 ??F (36.5 ??C) SpO2: 98% Weight: 91.2 kg (201 lb) Height: 172.7 cm (67.99 ) Body mass index is 30.57 kg/m??. Physical Exam Vitals and nursing note reviewed. Constitutional: General: She is awake. She is not in acute distress. Appearance: Normal appearance. She is normal weight. She is not ill-appearing. HENT: Head: Normocephalic and atraumatic. Nose: Nose normal. Mouth/Throat: Mouth: Mucous membranes are moist. Eyes: General: Lids are normal. Extraocular Movements: Extraocular movements intact. Pupils: Pupils are equal, round, and reactive to light. Cardiovascular: Rate and Rhythm: Normal rate and regular rhythm. Pulses: Normal pulses. Pulmonary: Effort: Pulmonary effort is normal. No respiratory distress. Skin: General: Skin is warm and dry. Neurological: Mental Status: She is alert and oriented to person, place, and time. Cranial Nerves: Cranial nerve deficit present. Sensory: No sensory deficit. Motor: Motor strength is normal.No weakness. Coordination: Coordination normal. Gait: Gait normal. Psychiatric: Mood and Affect: Mood normal. Speech: Speech normal. Behavior: Behavior normal. Neurological Exam Mental Status Awake and alert. Oriented to person, place, time and situation. Oriented to person, place, and time. Speech is normal. Language is fluent with no aphasia. Attention and concentration are normal. Fundof knowledge is appropriate for level of education. Cranial Nerves CN II: Right visual acuity: Counts fingers. Left visual acuity: Counts fingers. Left homonymous hemianopsia. CN III, IV, : Extraocular movements intact bilaterally. Normal lids and orbits bilaterally. Pupils equal round and reactive to light bilaterally. CN V: Facial sensation is normal. CN VII: Full and symmetric facial movement. CN VIII: Hearing is normal to speech . Motor Normal muscle bulk throughout. No fasciculations present. Normal muscle tone. Strength is 5/5 throughout all four extremities. Sensory Light touch is normal in upper and lower extremities. Coordination Right: Lmimxi-nt-wdpd normal.Left: Xzfqws-ip-dylh normal. No obvious dysmetria . Gait Normal gait.Casual gait is normal including stance, stride, and arm swing. NIH 1- visual Modified [place] Score: 1 0 No Symptoms 1 No significant disability. Able to carry out all usual activities, despite some symptoms. 2 Slight disability. Able to look after own affairs without assistance, but unable to carry out allprevious activities. 3 Moderate disability. Requires some help, but able to walk unassisted. 4 Moderately severe disability. Unable to attend to own bodily needs without assistance, and unableto walk unassisted. 5 Severe disability. Requires constant nursing care and attention, bedridden, incontinent. 6 Hemoglobin Date Value Ref Range Status 10/20/2024 13.0 12.0 - 15.9 g/dL Final 03/28/2023 11.5 11.2 - 15.7 g/dL Final Hematocrit Date Value Ref Range Status 10/20/2024 40.0 34.0 - 46.6 % Final 03/28/2023 35.3 34.0 - 45.0 % Final Platelets Date Value Ref Range Status 10/20/2024 178 140 - 450 10*3/mm3 Final 03/28/2023 226 155 - 369 10*3/uL Final Hemoglobin A1C Date Value Ref Range Status 10/20/2024 6.00 (H) 4.80 - 5.60 % Final LDL Cholesterol Date Value Ref Range Status 10/20/2024 127 (H) 0 - 100 mg/dL Final AST (SGOT) Date Value Ref Range Status 10/19/2024 34 (H) 1 - 32 U/L Final ALT (SGPT) Date Value Ref Range Status 10/19/2024 23 1 - 33 U/L Final Assessment / Plan Assessment/Plan: Diagnoses and all orders for this visit: 1. History of ischemic right [employer] stroke (Primary) - Cryptogenic in etiology - Continue aspirin 81 mg daily - Continue atorvastatin 80 mg daily - Blood pressure goals less than 130/80. - Increase activity as tolerated - Heart healthy diet. - 30 day monitor was negative for Afib. Order placed for loop per recommendations made at last appointment. Patient did not previously schedule due to having a lot going on in her personal life. She would now like to proceed with exchange. I have notified my regional coordinator. - Continue to follow up with neuro-ophthalmology - Return to the ED with any additional stroke symptoms - Follow up in stroke clinic in 6 months. 2. Hyperlipidemia LDL goal <70 - LDL 127. Goal less than 70 for secondary stroke prevention - Continue atorvastatin 80 mg daily - Heart healthy diet 3. Palpitations - LAE noted on TTE - 30 day MCOT unrevealing for cardiac source. Given patient's history of syncopal events, palpitations and now cryptogenic stroke would recommend production dispatcher monitoring for Afib. - Follow-up with cardiology as recommended 4. Hypertension, unspecified type -BP goals less than 130/80 - Further management per primary care provider Discussed the importance of medication compliance Aspirin 81mg daily and Atorvastatin 80mg nightly and lifestyle modifications adequate control of blood pressure, adequate control of cholesterol (goal LDL <70), increased physical activity, and implementation of healthy diet to help reduce the risk of future cerebrovascular events. Also discussed the signs symptoms that would warrant the patient return back to the emergency department including unilateral weakness, unilateral numbness, visualdisturbances, loss of balance, speech difficulties, and/or a sudden severe headache. Patient verbalized understanding. Follow Up: Return in about 6 months (around 11/04/2025). Patient or patient field sales representative verbalized consent for the use of Ambient Listening during the visit with Tanya De Paz APRN for chart documentation. 05/05/2025 13:32 EDT Tanya De Paz APRN [facility] Neuro Stroke documented in this encounter Plan of Treatment Upcoming Encounters Date Type Department Care Team (Late st Contact Info) Description 11/06/2025 10:00 AM EST Office Visit [facility] [address] [place] [id number] Tanya De Paz APRN [address] [place] [address] [address] [place] [id number] 12/22/2025 9:30 AM EST Office Visit [facility] [address] [place] [address] Archie Davis MD [address] [place], [place] [address] [place] [address] documented as of this encounter Visit Diagnoses Diagnosis History of ischemic right [employer] stroke- Primary Transient ischemic attack (TIA), and cerebral infarction without residual deficits Palpitations Hyperlipidemia LDL goal <70 Other and unspecified hyperlipidemia Hypertension, unspecified type documented in this encounter Care Teams Retail Marketing Executive Relationship Specialty Start Date End Date Kane Morgan MD [address] [facility] [address] [place] [address] PCP - General Adolescent Medicine 02/01/23 documented as of this encounter
--- NOTE | 2025-06-26 13:00 | CA_ITS ---
FINAL REPORT TECHNIQUE: Left lower extremity venous duplex was performed with augmentation and compression. CLINICAL HISTORY: EDEMA/BRUISING LT CALF,PRIOR INJURY WEEK AGO HIT LEFT ORO ON TRUCK HITCH.PT ON BABY ASA COMPARISON: None FINDINGS: Proper flow is seen throughout the deep venous system. There is no evidence of left lower extremity deep venous thrombosis. IMPRESSION: no deep venous thrombosis. Reviewed, Interpreted and Dictated by Esvin Calixto MD Transcribed by Katrin Maynard Authenticated and [facility]
--- OUTSIDE RECORDS SUMMARY | 2025-06-26 13:02 | XMS_ITS | Encounter Summary ---
Author Organization [facility] Address [address] [place] [address] Care Team Providers Care House Registry Rn Name Role Phone Kane Morgan MD Primary Care Provider [phone] Archie Davis MD Unavailable [phone] Encounter Details Date Type Department Care Team (Late st Contact Info) Description 02/01/2023 Orders Only External Location [address] [place] [address] Provider, External Social History Tobacco Use Types Packs/Day Years Used Date Smoking Tobacco: Never Assessed Comments Unknown Sex and Gender Information Value Date Recorded Sex Assigned at Not on file Legal Sex Female 3:03 PM EDT Gender Identity Not on file Sexual Orientation Not on file documented as of this encounter Plan of Treatment Not on file documented as of this encounter Procedures Procedure Name Priority Date/Time Associated Diagnosis Comments POC US ECHOCARDIOGRAPHY COMPLETE W DOPPLER AND COLOR 02/01/2023 5:34 PM EDT documented in this encounter Results * POC US Echocardiography Complete W Doppler and Color (02/01/2023 5:34 PM EDT) Anatomical Region Laterality Modality Ultrasound 02/01/2023 5:34 PM EDT us External Provider IMG POINT OF CARE ULTRASOUND F inal Result documented in this encounter Visit Diagnoses Not on filedocumented in this encounter Care Teams House Registry Rn Relationship Specialty Start Date End Date Kane Morgan MD [address] [place] [address] PCP - General Internal Medicine 02/10/23 Archie Davis MD [address] [place] [address] Referring Physician Cardiology 03/12/23 documented as of this encounter
--- OUTSIDE RECORDS SUMMARY | 2025-06-26 13:02 | XMS_ITS | Encounter Summary ---
Author Organization [facility] Address [address] [facility] [place] [address] Care Team Providers Care Internet Sales Representative Name Role Phone Kane Morgan MD Primary Care Provider [phone] Archie Davis MD Unavailable [phone] Reason for Referral * Consultation (Routine) - Authorized Specialty Diagnoses / Procedures Referred By Contac t Referred To Contact Nephrology Diagnoses Personal history of transient cerebral ischemia Accelerated hypertension Kane Morgan MD [address] [place] [address] Phone: tel: fax: [place] [address] [place] [address] Phone: tel: fax: Referral ID Status Reason Start Date Expiration Date Visits Requested Visits Authorized [id number] Authorized Specialty Services Required 10/28/2024 04/29/2026 1 1 Encounter Details Date Type Department Care Team (Latest Contact Info) Description 10/28/2024 Community [facility] [address] [place] [address] Kane Morgan MD [facility] [address] [place] [address] Personal history of transient cerebral ischemia (Primary Dx); Accelerated hypertension Social History Tobacco Use Types Packs/Day Years Used Date Smoking Tobacco: Never Passive Smoke Exposure: Never Smokeless Tobacco: Never Alcohol Use Standard Drinks/Week Comments Never 0 (1 standard drink = 0.6 oz pur e alcohol) AUDIT-C Answer Date Recorded Q1: How often do you have a drink containing alcohol? Never 03/26/2023 Q2: How many drinks containi ng alcohol do you have on a typical day when you are drinking? Patient does not drink Q3: How often do you have si x or more drinks on one occasion? Never 03/26/2023 Comments No Sex and Gender Information Value Date Recorded Sex Assigned at Not on file Legal Sex Female 3:03 PM EDT Gender Identity Not on file Sexual Orientation Not on file documented as of this encounter Plan of Treatment Scheduled Referrals Name Type Priority Associated Diagnoses Orde r Schedule Ambulatory referral to Nephrology Outpatient Referral Routine Personal history of transient cerebral ischemia Accelerated hypertension Ordered: 10/28/2024 documented as of this encounter Visit Diagnoses Diagnosis Personal history of transient cerebral ischemia- Primary Transient ischemic attack (TIA), and cerebral infarction without residual deficits Accelerated hypertension Essential hypertension, malignant documented in this encounter Additional Health Concerns Assessment Noted Time A fall risk assessment has been complete d for the patient 03/26/2023 2:21 PM EDT A Body Mass Index follow-up plan has been documented for the patient 04/02/2023 4:57 PM EDT documented as of this encounter Care Teams Internet Sales Representative Relationship Specialty Start Date End Date Kane Morgan MD [address] [place] [address] PCP - General Internal Medicine 02/10/23 Archie Davis MD [address] [place] [address] Referring Physician Cardiology 03/12/23 documented as of this encounter
--- OUTSIDE RECORDS SUMMARY | 2025-06-26 13:02 | XMS_ITS | Clinical Summary ---
Author Organization [facility] Address [address] [place] [address] Care Team Providers Care Gastrointestinal Technician Name Role Phone Kane Morgan MD Primary Care Provider + [phone] Allergies Active Allergy Reactions Criticality Noted Date Comments Diphenhydramine Other (See Comments) 03/15/2021 TROUBLE SLEEPING\ Sumatriptan Other (See Comments) 03/15/2021 DIFF SWALLOWING Nirmatrelvir-Ritonavir Myalgia Medium 10/02/2023 Medications pantoprazole (PROTONIX) 40 MG EC tablet Take 1 tablet by mouth As Needed. Active aspirin 81 MG chewable tablet Chew 1 tablet Daily. Active atorvastatin (LIPITOR) 80 MG tablet Take 1 tablet by mouth Every Night. 90 tablet 10/20/2024 Active carvedilol (COREG) 3.125 MG tablet Take 1 tablet by mouth 2 (Two) Times a Day. 180 tablet 3 01/06/2025 Active Farxiga 10 MG tablet 03/28/2025 Active Active Problems Problem Noted Date Diagnosed Date CVA (cerebral vascular accident) 10/19/2024 S/P MVR (mitral valve repair) 10/19/2024 Nonrheumatic mitral valve regurgitation 02/11/20 Overview (02/10/2023): Added automatically from request for surgery [id number] Severe mitral regurgitation 02/10/2023 Overview (02/10/2023): Added automatically from request for surgery [id number] Acute congestive heart failu re, unspecified heart failure type 02/01/2023 Palpitations 02/01/2023 Leukocytosis 02/01/2023 Cytokine release syndrome, grade 1 03/19/2021 Bradycardia 03/19/2021 Pneumonia due to COVID-19 virus 03/15/2021 GERD without esophagitis 03/15/2021 Resolved Problems Problem Noted Date Diagnosed Date Resolved Date Acute pulmonary edema 03/15/20212020 Acute respiratory failure with hypoxia 03/15/2021 03/19/2021 Encounters Date Type Department Care Team Description 05/05/2025 11:00 AM EDT Office Visit [facility] [address] [facility] [address] [place] [address] Tanya De Paz, AHMET 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 (Primary Dx); Palpitations; Hyperlipidemia LDL goal <70; Hypertension, unspecified type 05/05/2025 Travel from Last 3 Months Family History Medical History Relation Name Comments Pulmonary embolism Father No Known Problems Maternal Grandfather Migraines Maternal Grandmother Felicitas Moreno Arrhythmia Mother Kendra Chapman Migraines Mother Kendra Chapman Stroke Mother Kendra Chapman February 2025 Coronary artery disease Paternal Grandfather Raphael horne Heart attack Paternal Grandfather Raphael Chapman of heart attack age 62 No Known Problems Paternal Grandmother Relation Name Status Comments Father Alive Maternal Grandfather Maternal Grandmother Felicitas Moreno Mother Kendra Chapman Alive Paternal Grandfather Raphael Chapman Paternal Grandmother Social History Tobacco Use Types Packs/Day Years [...] on file Sexual Orientation Not on file Last Filed Vital Signs Vital Sign Reading Time Taken Comments Blood Pressure 126/77 05/05/2025 10:47 AM EDT Pulse 70 05/05/2025 10:47 AM EDT Temperature 36.5 C (97.7 F) 05/05/2025 10:47 AM EDT Respiratory Rate 13 10/26/2024 12:00 PM EST Oxygen Saturation 98% 05/05/2025 10:47 AM EDT Inhaled Oxygen Concentration - - Weight 91.2 kg (201 lb) 05/05/2025 10:47 AM EDT Height 172.7 cm (5' 7.99 ) 05/05/2025 10:47 AM E DT Body Mass Index 30.57 05/05/2025 10:47 AM EDT Plan of Treatment Upcoming Encounters Date Type Department Care Team (Late st Contact Info) Description 11/06/2025 10:00 AM EST Office Visit [facility] [address] [facility] [address] [place] [address] Tanya De Paz, LEGAL ADVISER [address] [facility] [address] [place] [address] 12/22/2025 9:30 AM EST Office Visit [facility] [address] [facility] [address] [place] [phone] Archie Davis MD [address] [facility] [address] [place] [address] Health Maintenance Due Date Last Done Comments Annual Gynecologic Pelvic an d Breast Exam 1962 Pneumococcal Vaccine 50+ (1 of 2 - PCV) 1981 PAP SMEAR 1983 MAMMOGRAM 2002 COLOGUARD 2007 COLON CANCER SCREENING 5 YEA R SIGMOIDOSCOPY 2007 COLONOSCOPY 2007 [address] CANCER SCREENING 2007 CT COLONOGRAPHY 2007 FECAL OCCULT BLOOD TEST 2007 FIT Testing (1 year) 2007 ZOSTER VACCINE (1 of 2) 2012 ANNUAL PHYSICAL 03/20/2021 COVID-19 Vaccine (2 - season) 2024 INFLUENZA VACCINE 08/23/2025 10/06/2018 LIPID PANEL 10/20/2025 10/20/2024, 09/24, 02/17/2023 TDAP/TD VACCINES (2 - Td or Tdap) 10/06/2028 018 HEPATITIS C SCREENING Completed 03/28/2023 Procedures Procedure Name Priority Date/Time Associated Diagnosis Comments LIPID PANEL Urgent 10/20/2024 6:40 AM EST from Last 3 Months or Most Recently Relevant to Health Maintenance Results * (ABNORMAL) Lipid Panel (10/20/2024 6:40 AM EST) Total Cholesterol 184 0 - 200 mg/dL 10/20/2024 7:32 AM EST [facility] Triglycerides 87 0 - 150 mg/dL 10/20/2024 7:32 AM EST [facility] HDL Cholesterol 41 40 - 60 mg/dL 10/20/2024 7:32 AM EST [facility] LDL Cholesterol 127(H) 0 - 100 mg/dL 10/20/2024 7:32 AM EST [facility] VLDL Cholesterol 16 5 - 40 mg/dL 10/20/2024 7:32 AM EST [facility] LDL/HDL Ratio 3.06 10/20/2024 7:32 AM EST [facility] Blood Venipuncture / Unknown 10/20/2024 6:40 AM EST 10/20/2024 7:06 AM EST Narrative [facility] - 10/20/2024 7:32 AM EST Cholesterol Reference Ranges (U.S. Department of Health and Human Services ATP III Classifications) Desirable <200 mg/dL Borderline High 200-239 mg/dL High Risk >240 mg/dL Triglyceride Reference Ranges (U.S. Department of Health and Human Services ATP III Classifications) Normal <150 mg/dL Borderline High 150-199 mg/dL High 200-499 mg/dL Very High >500 mg/dL HDL Reference Ranges (U.S. Department of Health and Human Services ATP III Classifications) Low <40 mg/dl (major risk factor for CHD) High >60 mg/dl ('negative' risk factor for CHD) LDL Reference Ranges (U.S. Department of Health and Human Services ATP III Classifications) Optimal <100 mg/dL Near Optimal 100-129 mg/dL Borderline High 130-159 mg/dL High 160-189 mg/dL Very High >189 mg/dL Shaina Chauhan LEGAL ADVISER LAB BLOOD ORDERABLES Fin al Result Performing Organization Address City/State/[facility] Co de Phone Number [facility]
[address] [place] [address], from Last 3 Months or Most Recently Relevant to Health Maintenance Insurance PPO Advance Directives * CPR (Attempt to Resuscitate) (Latest Code Status on File) Date Activated Date Inactivated Comments 10/19/2024 3:16 PM 10/20/2024 7:46 PM Question Answer Comments Code Status (Patient has no pulse and is not breathing): CPR (Attempt to Resuscitate) Medical Interventions (Patie nt has pulse or is breathing): Full Support Level Of Support Discussed With: Patient * CPR (Attempt to Resuscitate) Date Activated Date Inactivated Comments 02/17/2023 12:07 PM 02/17/2023 5:02 PM Question Answer Comments Code Status (Patient has no pulse and is not breathing): CPR (Attempt to Resuscitate) Medical Interventions (Patie nt has pulse or is breathing): Full Level Of Support Discussed With: Patient * CPR (Attempt to Resuscitate) Date Activated Date Inactivated Comments 02/01/2023 6:55 PM 02/02/2023 2:28 PM Question Answer Comments Code Status (Patient has no pulse and is not breathing): CPR (Attempt to Resuscitate) Medical Interventions (Patie nt has pulse or is breathing): Full Support Level Of Support Discussed With: Patient Release to patient: Routine Release * CPR (Attempt to Resuscitate) Date Activated Date Inactivated Comments 03/15/2021 4:10 PM 03/19/2021 12:46 PM Question Answer Comments Code Status (Patient has no pulse and is not breathing): CPR (Attempt to Resuscitate) Medical Interventions (Patie nt has pulse or is breathing): Full Level Of Support Discussed With: Patient Care Teams Gastrointestinal Technician Relationship Specialty Start Date End Date Kane Morgan MD [address] [place] [address] PCP - General Adolescent Medicine 02/01/23
--- OUTSIDE RECORDS SUMMARY | 2025-06-26 13:02 | XMS_ITS | Encounter Summary ---
Author Organization [facility] Address [address] [place] [address] Care Team Providers Care Sweatband Separator Name Role Phone Kane Morgan MD Primary Care Provider [phone] Archie Davis MD Unavailable [phone] Reason for Referral * Consultation (Routine) - Closed Specialty Diagnoses / Procedures Referred By Contac t Referred To Contact Ophthalmology Diagnoses Personal history of transient cerebral ischemia Kane Morgan MD [address] [place], [place] [id number] Phone: tel: fax: [facility] [address] [place] [phone] Phone: tel: fax: Referral ID Status Reason Start Date Expiration Date V isits Requested Visits Authorized [id number] Closed Specialty Services Required 10/26/2024 04/27/2026 1 1 Encounter Details Date Type Department Care Team (Late st Contact Info) Description 10/26/2024 [facility] [address] [place] [address] Kane Morgan MD [address] [place] [address] Personal history of transient cerebral ischemia (Primary Dx) Social History Tobacco Use Types Packs/Day Years [...] Scheduled Referrals Name Type Priority Associated Diagnoses Order Schedule Ambulatory Referral to Ophthalmology Outpatient Referral Routine Personal history of transient cerebral ischemia Ordered: 10/26/2024 documented as of this encounter Visit Diagnoses Diagnosis Personal history of transient cerebral ischemia- Primary Transient ischemic attack (TIA), and cerebral infarction without residual deficits documented in this encounter Additional Health Concerns Assessment Noted Time A fall risk assessment has been complete d for the patient 03/26/2023 2:21 PM EDT A Body Mass Index follow-up plan has been documented for the patient 04/02/2023 4:57 PM EDT documented as of this encounter Care Teams Sweatband Separator Relationship Specialty Start Date End Date Kane Morgan MD [address] [place] [address] PCP - General Internal Medicine 02/10/23 Archie Davis MD [address] [place] [address] Referring Physician Cardiology 03/12/23 documented as of this encounter
--- OUTSIDE RECORDS SUMMARY | 2025-06-26 13:02 | XMS_ITS | Clinical Summary ---
Author Organization [facility] Address [address] [place] [address] Care Team Providers Care Paper Sales Representative Name Role Phone Kane Morgan MD Primary Care Provider + [phone] Archie Davis MD Unavailable [phone] Allergies Active Allergy Reactions Criticality Noted Date Comments Diphenhydramine Other - please document in the comment field Low 03/15/2021 TROUBLE SLEEPING\ Nirmatrelvir-Ritonavir Other - please document in the comment field Medium 10/02/2023 Sumatriptan Other - please document in the comment field Low 03/15/2021 DIFF SWALLOWING Medications pantoprazole (Protonix) 40 MG EC tablet Take 40 mg by mouth 1 (one) time each day. 02/05/2012 Active Aspirin EC Adult Low Dose 81 MG EC tablet Take 1 tablet (81 mg) by mouth daily. 10/18/2024 Active atorvastatin (Lipitor) 80 MG tablet Take 1 tablet (80 mg) by mouth daily. Active carvedilol (Coreg) 3.125 MG tablet Take 1 tablet (3.125 mg) by mouth in the morning and 1 tablet (3.125 mg) in the evening. 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 02/13/2025 Blurred vision 02/13/2025 Mitral valve disease 03/26/2023 Beta-blockers contraindicated due to bradycardia 02/25/2023 Obesity (BMI 30-39.9) 02/19/2023 Left atrial enlargement 02/16/2023 Frequent PVCs 02/16/2023 Palpitations 02/01/2023 Bradycardia 03/19/2021 GERD without esophagitis 03/15/2021 Kidney stone 11/11/2017 Resolved Problems Problem Noted Date Diagnosed Date Resolved Date Thrombocytopenia 03/09/2023 03/12/2023 Acute respiratory insufficiency 03/07/2023 03/12/2023 Overview (03/07/2023): - Previously requiring HFNC, weaned to 5L NC 03/07 - Continue pulmonary hygiene with scheduled HTS nebs, duo nebs, and daily lasix Acute kidney injury 03/06/2023 03/12/20 Overview (03/06/2023): Baseline Cr 0.8-1 Creatinine, Plasma (mg/dL) Date/Time Value 03/06/2023 0109 1.18 (H) Monitor renal function daily Avoid nephrotoxins, avoid NSAIDs, renally dose medications Nausea 03/05/2023 03/12/2023 Overview (03/05/2023): Post operative, PRN Zofran Constipation 03/05/2023 03/12/2023 Overview (03/05/2023): Perioperative, bowel regimen Acute respiratory failure wi th hypoxia and hypercarbia 03/05/2023 03/07/2023 Overview (03/06/2023): Post-operative Arrived to ICU intubated, now HFNC Wean oxygen and ventilatory support as able Goal spo2 88-92% Daily CXR Pulm hygiene, may need bronch if oxygenation not improving Leukocytosis 03/05/2023 03/12/2023 Overview (03/06/2023): Multifactorial in setting of recent surgery Continue to follow labs and signs of infection May require further investigation in the future Daily CBC -obtain cbc w diff this afternoon to eval shift Chronic heart failure with p reserved ejection fraction 02/16/2023 03/12/2023 Overview (03/06/2023): Intra operative MARY with 55% LVEF Weaned off of epi Diurese as clinically indicated Takes lasix at home, will likely require higher doses for effective diuresis Unintentional weight loss 02/16/2023 Severe mitral regurgitation 02/10/2023 03/12/2023 Overview (03/05/2023): S/p MVR on 03/04 Intraoperative MARY with severe mitral regurgitation, no pathology noted in other valves Immunizations Immunization Administration Dates Next Due Influenza, injectable, quadrivalent 10/06/2018 Tdap 10/06/2018 Family History Medical History Relation Name Comments Pulmonary embolism Father Anesthesia problems Neg Hx Malig Hyperthermia Neg Hx Relation Name Status Comments Father Social History Tobacco Use Types Packs/Day Years Used Date Smoking Tobacco: Never Passive Smoke Exposure: Never Smokeless Tobacco: Never Tobacco Cessation:Counseling Given: Not Answered Alcohol Use Standard Drinks/Week Comments Never 0 [...] Sign Reading Time Taken Comments Blood Pressure 117/74 03/28/2023 7:12 AM EDT Pulse 104 03/28/2023 7:12 AM EDT Temperature 36.9 C (98.4 F) 03/28/2023 7:12 AM EDT Respiratory Rate 13 03/28/2023 7:12 AM EDT Oxygen Saturation 92% 03/28/2023 7:12 AM EDT Inhaled Oxygen Concentration - - Weight 87.1 kg (192 lb) 03/28/2023 12:51 AM EDT Height 170.2 cm (5' 7 ) 03/28/2023 12:51 AM EDT Body Mass Index 30.07 03/28/2023 12:51 AM EDT Plan of Treatment Health Maintenance Due Date Last Done Comments [facility]-Depression Screening 1962 [facility]-Infant/Child/Adol SDOH Screenings 1962 [facility]- SDOH Screenings 1980 [facility]-Adult SDOH Screenings 1980 [facility]-Pap Smear 1983 [facility]-Cervical Cancer Screening 1992 [facility]-HPV/Cotest 1992 CT Colonography 2007 Colonoscopy 2007 FIT-DNA 2007 FIT 2007 FOBT 2007 Sigmoidoscopy 2007 [facility]-Colorectal Cancer Screening 2007 [facility]-Breast Cancer Screening 2012 [facility]-Pneumococcal Vaccine: 50 + Years (1 of 1 - PCV) 2012 [facility]-Zoster Vaccines (1 of 2) 2012 [id number]-57 Vaccine (2 - season) 2024 06/10/2021 [facility]-Influenza Vaccine (#1) 2025 10/06/2018 [facility]-Diabetes: Hemoglobin A1C 10/20/2025, 02/17/2023 [facility]-DTaP,Tdap,and Td Vaccine s (2 - Td or Tdap) 10/06/2028 10/06/2018 [facility]-RSV Vaccine: 60+ Years o r (1 - 1-dose 75+ series) 2037 [facility]-Obesity Intervention Completed 023, 02/19/2023 [facility]-HIV Screening Completed 03/28/2023 [facility]-Hepatitis C Screening Completed 03/28/2023 HPV Vaccines Aged Out No longer eligi ble based on patient's age to complete this topic [facility]-HIB Vaccines Aged Out No longer e ligible based on patient's age to complete this topic [facility]-Hepatitis A Vaccines Aged Out No longer eligible based on patient's age to complete this topic [facility]-IPV Vaccines Aged Out No longer e ligible based on patient's age to complete this topic [facility]-Rotavirus Vaccines Aged Out No lo nger eligible based on patient's age to complete this topic Medical Devices Implanted Type Area Svp Digital [employer] Food [employer]ing Device Identifier Shelf Expiration Date Model / Serial / Lot Valve Annuloplasty Ring 30mm Ring Carpet - [id number] Implanted:Qty: 1 on 03/04/2023 by Hair Marshall MD at [id number] 12/18/2026 [id number] / [id number] / [id number] Pledget Firm Pre-Punched 3mm X 7mm X 1.5mm 10/Pk - [id number] Implanted: 023 by Hair Marshall MD at [facility] (Quantity not on file) [id number] 1 / / Pledget Firm Pre-Punched 3mm X 7mm X 1.5mm 10/Pk - [id number] Implanted: 023 by Hair Marshall MD at [facility] (Quantity not on file) [id number] 1 / / Procedures Procedure Name Priority Date/Time Associated Diagnosis Comments HEPATITIS C ANTIBODY - ED W/REFLEX TO HCV QUANT PCR STAT 03/28/2023 12:49 AM EDT HIV 1/2 ANTIBODY/ANTIGEN SCREEN WITH REFLEX TO HIV I/II DIFFERENTIATION STAT 03/28/2023 12:49 AM EDT from Last 3 Months or Most Recently Relevant to Health Maintenance Results * HIV 1 & 2 Antibody/Antigen Screen (03/28/2023 12:49 AM EDT) HIV 1 & 2 Antibody/Antigen Screen Non Reactive Non Reactive 03/28/2023 1:42 AM EDT [facility] Comment:Screening for HIV 1 & 2 antibodies, and P24 antigen is NONREACTIVE. No confirmatory testing is required. Blood Venous blood specimen / Unknown Venipuncture / Unknown 03/28/2023 12:49 AM EDT 03/28/2023 1:00 AM EDT us Hair Simon MD LAB BLOOD ORDERABLES Final Result [facility] [address] [place] [address] * Hepatitis C Antibody - ED (03/28/2023 12:49 AM EDT) Hepatitis C Antibody Negative Negative 03/28/2023 1:42 AM EDT [facility] Blood Venous blood specimen / Unknown Venipuncture / Unknown 03/28/2023 12:49 AM EDT 03/28/2023 1:00 AM EDT Hair Simon MD LAB BLOOD ORDERABLES Final Result [facility] [address] [place] [address] from Last 3 Months or Most Recently Relevant to Health Maintenance Insurance ANTH Advance Directives * Full Code (Latest Code Status on File) Date Activated Date Inactivated Comments 03/04/2023 7:13 PM 03/12/2023 2:42 PM Question Answer Comments Patient has decision-making capacity? Yes Care Teams Paper Sales Representative Relationship Specialty Start Date End Date Kane Morgan MD [address] [place] [phone] PCP - General Internal Medicine 02/10/23 Archie Davis MD [address] [place] [address] Referring Physician Cardiology 03/12/23
--- OUTSIDE RECORDS SUMMARY | 2025-06-26 13:02 | XMS_ITS | Encounter Summary ---
Author Organization [facility] Address [address] [place] [address] Care Team Providers Care Authorization Nurse Name Role Phone Kane Morgan MD Primary Care Provider [phone] Encounter Details Date Type Department Care Team (Latest Contact Info) Description 05/05/2025 Travel Social History Tobacco Use Types Packs/Day Years [...] on file documented as of this encounter Functional Status documented as of this encounter Plan of Treatment Upcoming Encounters Date Type Department Care Team (Late st Contact Info) Description 11/06/2025 10:00 AM EST Office Visit [facility] [address] [facility] [address] [place] [address] Tanya De Paz, BLEACH BOILER PULLER [address] [facility] [address] [address] 12/22/2025 9:30 AM EST Office Visit [facility] [address] [facility] [address] [place] [phone] Archie Davis MD [address] [facility] [address] [place] [address] documented as of this encounter Visit Diagnoses Not on filedocumented in this encounter Care Teams Authorization Nurse Relationship Specialty Start Date End Date Kane Morgan MD [address] [facility] [address] [place] [address] PCP - General Adolescent Medicine 02/01/23 documented as of this encounter
--- OUTSIDE RECORDS SUMMARY | 2025-06-26 13:02 | XMS_ITS | Encounter Summary ---
Author Organization [facility] Address [address] [place] [address] Care Team Providers Care Cement Finisher Helper Name Role Phone Kane Morgan MD Primary Care Provider + [phone] Archie Davis MD Unavailable [phone] Encounter Details Date Type Department Care Team (Late st Contact Info) Description 03/09/2023 Lab Requisition [facility] [address] [place] [address] Kira Valentin MD [address] [facility] [address] [facility] [address] [place] [address] Encounter for general adult medical examination without abnormal findings Social History Tobacco Use Types Packs/Day Years Used Date Smoking Tobacco: Never Passive Smoke Exposure: Never Smokeless Tobacco: Never Alcohol Use Standard Drinks/Week Comments Never 0 (1 standard drink = 0.6 oz pur e alcohol) Comments No Sex and Gender Information Value Date Recorded Sex Assigned at Not on file Legal Sex Female 3:03 PM EDT Gender Identity Not on file Sexual Orientation Not on file COVID-19 Exposure Response Date Recorded In the last 10 days, have yo u been in contact with someone who was confirmed or suspected to have Coronavirus/COVID-19? No / Unsure 03/04/2023 12:21 PM EDT documented as of this encounter Functional Status * Calculated C-SSRS Risk Score (Lifetime/Recent) Answer Date of Assessment Author No Risk Indicated 03/11/2023 8:00 AM EDT Estephanie Keys RN * Question Answer Date of Assessment Author 1. Wish to be (Past 1 Month) No 023 8:00 AM EDT Estephanie Keys RN 2. Non-Specific Active Suici bailey Thoughts (Past 1 Month) No 03/11/2023 8:00 AM EDT Lucia Keys RN 6. Suicidal Behavior (Lifetime) No 3 8:00 AM EDT Estephanie Keys RN documented as of this encounter Plan of Treatment Not on file documented as of this encounter Procedures Procedure Name Priority Date/Time Associated Diagnosis Comments MULTI DRUG RESISTANCE TEST Routine 03/09/2023 8:00 AM EDT Encounter for general adult medical examination without abnormal findings documented in this encounter Results * Multi Drug Resistance Test (03/09/2023 8:00 AM EDT) Culture No growth at day 2 03/11/2023 11:08 AM EDT [facility] Swab (Nares and Kia Rectal) 03/09/2023 8:00 AM EDT 03/09/2023 10:05 AM EDT us Kira Hatch MD LAB MICROBIOLOGY - GENERAL ORDERABLES Final Result Performing Organization Address City/State/[facility] Co de Phone Number [facility] [address] [place] [address] documented in this encounter Visit Diagnoses Diagnosis Encounter for general adult medical examination without abnormal findings documented in this encounter Additional Health Concerns Assessment Noted Time A fall risk assessment has been complete d for the patient 02/19/2023 11:19 AM EDT A Body Mass Index follow-up plan has been documented for the patient 02/19/2023 12:59 PM EDT documented as of this encounter Care Teams Cement Finisher Helper Relationship Specialty Start Date End Date Kane Morgan MD [address] [place] [address] PCP - General Internal Medicine 02/10/23 Archie Davis MD [address] [place] [address] Referring Physician Cardiology 03/12/23 documented as of this encounter
--- NOTE | 2025-06-26 13:25 | XR_ITS ---
FINAL REPORT CLINICAL HISTORY: LEFT LEG PAIN ON LOWER ANTERIOR SIDE - HIT LEG LAST ANAID (06/23) COMPARISON: None FINDINGS: Two views of the left tibia/fibula were obtained. There is a sideplate and screws securing the distal fibula. The hardware appears intact. There is no acute fracture or dislocation. The joint spaces are intact. There is no soft tissue abnormality. IMPRESSION: No acute bony abnormality. Reviewed, Interpreted and Dictated by Esvin Calixto MD Transcribed by Treva Hewitt Authenticated and . [facility]
== END 2025-06-26 23:59 | disposition home or self-care (01) ==
LOC: RT 12:57
PROVIDERS: PCP Nurse Practitioner Family; Visit Provider Nurse Practitioner Family
DX: M79.605 Pain in left leg (principal); M79.89 Other specified soft tissue disorders; S80.12XA Contusion of left lower leg, initial encounter; W22.8XXA Striking against or struck by other objects, initial encounter
CPT/HCPCS: 73590; 93971